=== PATIENT | female | born 1945 | race Caucasian/White ===

== ENCOUNTER → 2016-09-08 | Outpatient (CLI) | payer MEDICARE, OTHER ==
[~2016-09-08] MED LIST: ANASTROZOLE1 MG PO; ASPIRIN EC81 MG PO; CALCIUM 600 +1 EAC7 PO; CENTRUM SILVER1 TAB PO; COLACE100 MG PO; FASLODEX IM; FLEXERIL10 MG PO; IBRANCE125 MG PO; KEFLEX500 MG PO; LEVOTHROID (SY25 MCG PO; MIRALAX17 GM PO; NICORETTE4 MG PO; NORCO 5-325 TA1 EACH PO; OXYGEN M-15 INH; TYLENOL325 MG PO; ULTRAM50 MG PO; VITAMIN D-32000 UNI1 PO
== END | disposition disaster alternative care site (69) ==
LOC: GBCOE 08:38
DX: Z12.31 Encounter for screening mammogram for malignant neoplasm of breast (principal); M81.0 Age-related osteoporosis without current pathological fracture; M85.89 Other specified disorders of bone density and structure, multiple sites; Z85.3 Personal history of malignant neoplasm of breast; Z87.891 Personal history of nicotine dependence; Z87.39 Personal history of other diseases of the musculoskeletal system and connective tissue; Z78.0 Asymptomatic menopausal state; Z90.11 Acquired absence of right breast and nipple; Z79.811 Long term (current) use of aromatase inhibitors
CPT/HCPCS: G0202

== ENCOUNTER → 2016-09-25 | Outpatient (CLI) | payer MEDICARE, OTHER | END | disposition disaster alternative care site (69) | LOC: GRAD 09:39 | DX: M54.6 Pain in thoracic spine (principal); C79.51 Secondary malignant neoplasm of bone; M81.0 Age-related osteoporosis without current pathological fracture; M41.9 Scoliosis, unspecified; Z85.3 Personal history of malignant neoplasm of breast | CPT/HCPCS: A9577 ==

== ENCOUNTER 2016-09-30 16:00 | Inpatient (IN) | payer MEDICARE, OTHER ==
[~2016-09-30] VITALS: Ht 162.6 cm; Wt 67.3 kg
--- NOTE | ~2016-09-30 | DS ---
PATIENT'S NAME: EMELIA GILLIAM [facility] AGE: 71 Y [address] ROOM: [address] [address] LOCATION: [facility] [place] ADMIT DATE: 10/01/2016 Discharge Summary DISCHARGE DATE: 10/08/2016 FAMILY PHYSICIAN: Andrei Land MD ATTENDING PHYSICIAN: Martina Greenwood REASON FOR ADMISSION: The patient was a scheduled admission for an elective procedure. The procedure was posterior thoracic fusion and instrumentation for metastatic tumor to the spine. The patient presented with back pain, and imaging studies showed destruction of the T5 vertebra with spinal cord compression from metastatic tumor. TREATMENT RENDERED: The patient was taken to the operating room on day of admission and underwent posterior thoracic fusion and decompression. The surgery was uncomplicated. Postoperatively, the patient had some left leg weakness but was able to ambulate independently. Her pain was well controlled. The incision was healing well. Physical therapy and occupational therapy worked with the patient. The final pathology came back confirming metastatic tumor to the spine. The patient continued to progress, and by 10/08/2016 was well enough to be transferred to inpatient rehab. She was transferred that day and has since been checked on and confirmed to be progressing well with rehab. She has also been seen by Radiation Oncology, and plans are being made for radiation as well as chemotherapy. She will be followed up in Neurosurgery when she is done with rehab. FINAL DIAGNOSIS: Pathological fracture of T5 vertebra with spinal cord compression, status post posterior fusion and instrumentation. MD LETICIA MAYNARDO/modl /[id number] d: 10/12/16 0143 t: 10/12/162000, DISCHARGE SUMMARY
--- NOTE | ~2016-09-30 | INT ---
PATIENT'S NAME: LISA GILLIAM [facility] AGE: 71 Y [address] 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 Dear doctor: Ms. Lisa Gilliam was seen today in inpatient consultation. As you recall, this is a 71-year-old white female, known to our service. The patient with a previous history of carcinoma of the breast in 1988 and again in 2013. She has been treated by us previously and apparently started having complaints of back pain, which brought her to the attention of physicians. The patient on scans was found to have disease at the T5 level with some possible extension into the T4 area, was seen by Dr. Greenwood, the patient also did have some compression. Subsequently, the patient underwent a surgical decompression, had mechanical stabilization, and we are asked to see her in consultation. When seen today, she is sitting in a chair. She indicates she is doing reasonably well. Does have some complaints of pain. Indicates that she has been ambulating for limited extent and does have some left-sided weakness in the leg. She is aware of her diagnosis. Indicates she has been seen by Dr. Kang earlier today. She otherwise is aware that she may need radiation therapy. She denies any other significant complaints at this time. ALLERGIES: THE PATIENT WITH KNOWN ALLERGIES TO CODEINE, SULFA, AND CHLORAPREP. MEDICATIONS: Current medications include; 1. MiraLax. 2. [place]. 3. Theragran. 4. Vitamin D. 5. Os-Shay. PATIENT'S NAME: LISA GILLIAM [facility] AGE: 71 Y [address] ROOM: [place] [address] LOCATION: [facility] [place] ADMIT DATE: 10/01/2016 Oncology Report DISCHARGE DATE: FAMILY PHYSICIAN: COLTEN LUA MD ATTENDING PHYSICIAN: Martina Greenwood 6. Aspirin. 7. Colace. 8. Levothroid. 9. Flexeril. 10. Arimidex. 11. Senokot. 12. Ultram. 13. Nicorette. 14. Fleet's enema. 15. Dulcolax. 16. Milk of magnesia. 17. Tylenol. 18. Valium. 19. Zofran. 20. Dilaudid. PAST SURGICAL HISTORY: Positive for appendectomy, tonsillectomy, and adenoidectomy; right breast lumpectomy with axillary dissection in 1988; right breast mastectomy in 2000; polyp removal; removal of a toenail along the right great toe; and laparoscopic cholecystectomy. PAST MEDICAL HISTORY: Positive for chronic kidney disease, reflux, fatigue, mitral valve issues, osteoporosis, thoracic aortic aneurysm on CAT scan, history of bulimia, hypothyroidism, and bilateral breast cancer with the patient undergoing surgery on the right in 1988 and surgery on the left in 2013. At that time, the patient had 27/ lymph nodes positive for tumor. FAMILY HISTORY: The patient's mother had a history of breast cancer, dementia, heart disease, and stroke. Maternal aunt had breast cancer. The patient's sister in a motor vehicle accident. The patient's father had heart disease, of complications from colon surgery at age 83. The patient's brother has sleep apnea. Paternal grandfather had heart disease. SOCIAL HISTORY: The patient is a nurse by training. She was an alcoholic, has since quit. She was a smoker, quit smoking as well. The patient is . She has 2 adult children. Worked in the [place] area and has a diploma school level of education. REVIEW OF SYSTEMS: GENERAL: Denies fevers, chills, or night sweats. SKIN: The patient has pierced ears. PATIENT'S NAME: LISA GILLIAM [facility] AGE: 71 Y [address] ROOM: [place] [address] LOCATION: [facility] [place] ADMIT DATE: 10/01/2016 Oncology Report DISCHARGE DATE: FAMILY PHYSICIAN: COLTEN LUA MD ATTENDING PHYSICIAN: Martina Greenwood VISION: The patient has dry eyes. Wears glasses. She reports she has early cataracts. NOSE: The patient will have some stuffiness with her sinuses. MOUTH: The patient has her own teeth. No change in her voice or hoarseness. LUNGS: The patient has shortness of breath with exertion. Occasional cough. GI: The patient feels that she has ulcer disease. Will take Prilosec. CARDIOVASCULAR: Denies chest discomfort or arm pain. : The patient did indicate that she has nocturia x1. NEUROLOGIC: No history of strokes or seizures. HEMATOLOGIC: She indicates she will bruise easily. MUSCULOSKELETAL: She indicates that she fractured her right great toe in the 70s and does have osteoporosis. ENDOCRINE: No history of diabetes. History of hypothyroidism, for which she takes medications. APPLICATION SUPPORT INTERN: The patient underwent menarche at age 14. Went through menopause with her first chemotherapy in 1988. Has 2 and para 2. PHYSICAL EXAMINATION: VITAL SIGNS: Temperature of 97.6, pulse of 100, blood pressure 105/61, and weight of 67.3 kilos. GENERAL: A well-developed, well-nourished, white female, in no apparent distress. HEAD AND NECK: Normocephalic and atraumatic. Extraocular motions are intact. Oral cavity, no masses or mycotic lesions. Neck with no masses noted. The patient has a dressing in place going down her low cervical and upper thoracic spine region. No areas of bleeding. No areas of infection noted. NEUROLOGIC: The patient is alert and oriented x3. Mini mental exam is grossly normal. EXTREMITIES: She indicates her muscle strength in the upper extremities are within her norm and that she has some decreased muscle strength in the left lower leg. Nursing staff indicates she has walked today. We did not attempt to walk the patient. This concluded the limited physical exam of this patient. LABORATORY DATA: The patient has undergone MRIs, revealing the patient has significant disease at the T5 level with a T5 compression, extensive epidural extension at this level, near complete block of the cord of the canal with impending fracture of the cord at that level, lesser neoplastic involvement at T4. Pathology has been obtained, has come back as adenocarcinoma, metastatic, consistent with breast primary. ICD-10. PATIENT'S NAME: LISA GILLIAM [facility] AGE: 71 Y [address] ROOM: [id number] [place], [place] [address] LOCATION: [facility] [place] ADMIT DATE: 10/01/2016 Oncology Report DISCHARGE DATE: FAMILY PHYSICIAN: COLTEN LUA MD ATTENDING PHYSICIAN: Martina Greenwood IMPRESSION: A 71-year-old white female with surgery for a nearly compressing T5 lesion, found to be consistent with metastatic carcinoma of the breast primary. PLAN: We will discuss this patient with Drs. Greenwood and Pearl. We feel that she would benefit from adjuvant radiotherapy to the area of the surgical bed plus appropriate margin so as to minimize the chance of local recurrence. Once we have had an opportunity to discuss this patient with her other physicians, she will be scheduled for CT simulation, to be followed by treatment for a 2 to 3- week period of time depending on whether or not there was overlap with previously treated cook in the anterior chest from our treatment plan. We thank you for allowing us to consult on this most pleasant patient. Sincerely, YURY MANN MD, PHD FZL/modl /[id number] CC: MD Rad Buenrostro MD Cynthia M Lewis, MD d: 10/06/16 2223 t: 10/17/16 0919, INTERVAL NOTE
--- NOTE | ~2016-09-30 | OR ---
PATIENT'S NAME: EMELIA GILLIAM [facility] AGE: 71 Y [address] ROOM: [place] [address] LOCATION: [facility] ADMIT DATE: 10/01/2016 OR/Procedure Report DISCHARGE DATE: FAMILY PHYSICIAN: COLTEN LUA MD ATTENDING PHYSICIAN: Martina Greenwood SURGEON: Martina Greenwood MD TOOL ROOM MACHINIST: 1. Max Parnell RN. 2. Anna Johnston. DATE OF PROCEDURE: 10/01/2016 PREOPERATIVE DIAGNOSIS: Metastatic tumor to spine with spinal cord compression at T5. POSTOPERATIVE DIAGNOSIS: Metastatic tumor to spine with spinal cord compression at T5. PROCEDURES PERFORMED: 1. Laminectomy for decompression without foraminotomy at T4. 2. Laminectomy for decompression without diskectomy at T5. 3. Posterolateral fusion with morselized allograft bone at T2, T3, T4, and T6, T7, T8. 4. Posterior instrumentation with bilateral pedicle screws at T2, T3, T4 and T6, T7, T8. 5. Use of stealth frameless stereotactic system for screw placement. 6. Use of O-arm for intraoperative visualization. ANESTHESIA: General. HISTORY: This patient is a 71-year-old female who presented with back pain. Imaging studies showed a thoracic compression fracture at T5. Further imaging confirmed that the compression was as a result of a metastatic tumor. The patient has a history of breast cancer. The compression fracture was producing very severe stenosis of the patient's thoracic spine. It was also necessary to obtain tissue for pathological diagnosis and to assist with treatment planning. For this reason, decompression was recommended. The procedure, benefits, and risks were discussed with the patient, and with her consent, she was brought to the operating room for surgery. PROCEDURE IN DETAIL: In the operating room, the patient was placed in a supine position. Anesthesia was induced, and she was intubated. Her head was secured in a 3-pin Amezcua head boys golf coach, and she was turned to a prone position on a Alex table, taking care to protect all pressure points. The incision line was marked out approximately at the inferior angle of the PATIENT'S NAME: EMELIA GILLIAM [facility] AGE: 71 Y [address] ROOM: [place] [address] LOCATION: [facility] ADMIT DATE: 10/01/2016 OR/Procedure Report DISCHARGE DATE: FAMILY PHYSICIAN: COLTEN LUA MD ATTENDING PHYSICIAN: Martina Greenwood scapula corresponding to T6. It was extended rostrally and caudally a few bit for the added levels being operated upon. The whole area was prepped and draped in a sterile fashion. Local anesthesia was infiltrated. The #10 blade was used to open the incision and to deepen it to the fascial layer. The Bovie was then used to open the fascia and to dissect off the paraspinous muscles from the spinous processes and laminae of T3 to T8. The interlaminar spaces were clearly visualized at each level. At this point, the reference frame for the stealth frameless stereotactic system was attached to the spinous process of T7. Registration was carried out. The O-arm was then brought in, and a 3-dimensional picture of the spine was obtained around the operative area. The images from the O-arm were then merged with the stealth imaging system to create a 3-dimensional view of the spine for placement of pedicle screws. Pedicle screws were placed bilaterally at T2, T3, T4 and into T6, T7, and T8. The method for placement of pedicle screws was the same for all the levels and will be described for one level as representing all the others. Using the frameless stereotactic system, the entry point for the pedicle was determined, and this also corresponded anatomically to where it was expected. A small corporate pilot hole was then drilled. The pedicle screw finder was used to deepen the hole. The ball-tipped probe was used to feel around the sides of the hole to make sure that there was no breakage of the pedicle wall. Appropriate-sized screw was then inserted. This was done progressively at T2, T3, T4 and at T6, T7, T8. The T5 pedicles were not viable for pedicle screw placement, having been destroyed by tumor. The left T4 pedicle similarly was a little bit questionable, but could still take a screw. Having finished the screw placement, attention was directed to decompression. Decompression was carried out at T5 and T4. The bone was extremely soft at T5, and there was some epidural tumor dorsally surrounding the cord. This was carefully removed to expose the dura. The laminectomy was widened on both sides at T5. From a lateral approach, the floor of the canal was drilled down. The down-pushing curette was then carefully placed under the dura, and the area of bone that was bulging back into the spinal cord was pushed down into the area that had been drilled along the lateral side of the floor of the canal. This way, the dura was left undisturbed. The Wells instrument was passed underneath the dura, and there was no compression felt. This was done from both sides, drilling down into the PATIENT'S NAME: EMELIA GILLIAM [facility] AGE: 71 Y [address] ROOM: [address] [address] LOCATION: [facility] ADMIT DATE: 10/01/2016 OR/Procedure Report DISCHARGE DATE: FAMILY PHYSICIAN: COLTEN LUA MD ATTENDING PHYSICIAN: Martina Greenwood vertebral body and using the down-pushing curette to push down the bone into the area that had been drilled. We got a good anterior decompression this way. Appropriate length rods were then measured and trimmed. The rods were placed inside the pedicle screw heads. Setscrews were used to tighten the rods down inside the pedicle screw heads. Crosslinks were placed. The sides of the laminae and spinous processes of T2, T3, T4 as well as T6, T7, and T8 were decorticated. A mixture of cancellous chips and demineralized bone matrix was placed at the lateral sides where the decortication had been carried out. This was our posterolateral fusion. Final hemostasis was achieved. The incision was closed in layers using appropriate suture materials. A sterile dressing was applied. The Amezcua head boys golf coach was removed from the patient's head, and she was rolled back to a supine position on the operating table. Her anesthesia was reversed. She was extubated and taken to the recovery room to complete her recovery. I was present at and performed every aspect of this procedure, assisted at some stages by operating room nurses. There were no apparent intraoperative complications. Estimated blood loss was less than 500 mL, there was no reason for a blood transfusion. The patient's prognosis is uncertain at this time given the presence of tumor in her spine; however, she should be in a position to start receiving chemotherapy and radiation to control the tumor as best as possible. Also, the risk of spinal cord compression is significantly reduced now, and her spine has been stabilized also. MD CYNDEE MAYNARD/roslyn /[id number] d: 10/04/16 1505 t: 10/11/16 2020, OPERATIVE SUMMARY
--- NOTE | ~2016-09-30 | CON ---
PATIENT'S NAME: EMELIA GILLIAM [facility] AGE: 71 Y [address] ROOM: [place] [address] LOCATION: [facility] [place] ADMIT DATE: 10/01/2016 Consultation DISCHARGE DATE: FAMILY PHYSICIAN: COLTEN LUA MD ATTENDING PHYSICIAN: Martina Greenwood REFERRING PHYSICIAN: Itzel Iniguez MD A consult for Dr. Greenwood. This 71-year-old lady, who I know from previous care, is at this present time referred for rehab eval, GIRP admission. She is status post metastatic tumor to spine with T5 compression. She underwent the followin. Laminectomy, decompression without foraminotomy at L4. 2. Laminectomy, decompression without foraminotomy at L5. 3. Posterolateral fusion with morselized bone allograft at T2, T3, T4, and T6, T7, T8. 4. Posterior instrumentation with bilateral pedicle across T2, T3, T4, and T6, T7, T8. 5. Using frameless stereotactic system for screw placement, this was done on 10/01/2016, details on record. She is now alert, oriented. Vitals are as follows: Blood pressure 120/58, temperature 98.6, pulse 68, respiratory rate 16. She is 5 feet 4 inches tall and weighs 67.3 kg. She is at the present time showing weakness on the left lower extremity, especially proximally rather than distally at risk of falling, can ambulate up to 100 feet with front-wheeled walker. Tells me that she lives alone, and she has a split level home. Her bedroom is on the upper level. She is at the present time on the following medications: 1. MiraLAX. 2. Jasper. 3. Multivitamin. 4. Os-Shay D. 5. Aspirin. 6. Colace. 7. Levothroid. 8. Flexor. 9. Arimidex. 10. Senna S. 11. Ultram. 12. Nicorette. 13. NS 0.9%. 14. Fleets enema. PATIENT'S NAME: EMELIA GILLIAM [facility] AGE: 71 Y [address] ROOM: [place] [address] LOCATION: [facility] [place] ADMIT DATE: 10/01/2016 Consultation DISCHARGE DATE: FAMILY PHYSICIAN: COLTEN LUA MD ATTENDING PHYSICIAN: Martina Greenwood 15. Dulcolax. 16. MOM. 17. Tylenol. 18. Valium. 19. Zofran. 20. Lactated Ringer. 21. Dilaudid. 22. Narcan. ASSESSMENT AND PLAN: I feel this lady will benefit from intensive rehabilitation of about 10 days. I will suggest also she goes on Lovenox. She is at the risk of DVT, and we will put her in Johnson's, knee high with PlexiPulse. Thank you for this referral. I did explain everything for her. She verbalized understanding and agreement. MD FRANKLIN STARR/modl /[id number] d: 10/05/16 1600 t: 10/06/16 0747, CONSULTATION REPORT
[~2016-09-30 16:00] MED LIST changes: -FASLODEX IM; -IBRANCE125 MG PO; -KEFLEX500 MG PO; -NORCO 5-325 TA1 EACH PO; -TYLENOL325 MG PO
--- NOTE | 2016-10-02 03:07 | NUR ---
Shift Summary: Patient came to the floor at 2114. She has long dressing to mid upper back. Has numbness to bilateral lower legs. States she had this before her surgery. States Left leg feels heavier then right leg. Can move and lift both legs without difficulty. She has luke cath. Using Dilaudid SHALE MINER for pain control. Tolerating liquids well. Has quad right IJ and an unaccessed right chest port. Patient on 2L O2 when sleeping at home. Continued here.
[2016-10-02 05:34] LABS: HEMATOCRIT 30.6 % (33.0-46.0); HEMOGLOBIN 10.2 g/dL (10.0-15.0)
--- NOTE | 2016-10-02 15:40 | NUR ---
Introduced self/role to patient. Her plan is to go home here in [place]. Son lives with her and other son close by to assist as needed. Will have 9 steps to get up to her bedroom. We talked about DME which may need. Mentioned [employer], would need to get equipment before noon tomorrow if wanted to use them. Printed off all the places to get DME in [place] and gave to her. Interested in [facility] and no preference on who. Will follow up with her tomorrow. Added name to her marker board. Contacted Ally with [facility] and fax referral information.
--- NOTE | 2016-10-02 16:57 | NUR ---
PATIENT UP TO CHAIR X 2. LEFT LEG WEAKNESS WHEN WALKING. 2 ASSISTANCE WITH MOVMENT. ABLE TO LIFT LEGS OFF OF BED WHEN SUPINE. NUMBNESS TO BILATERAL FEET. PULSES PALPABLE, COLOR PALE. LUNGS CLEAR DIMINSHED. O2 AT 2L/MIN. DOES WEAR O2 AT 2L/MIN AT NIGHT AT HOME. [place] [facility] CONTINUES PROVIDING GOOD PAIN RELIEF. VSS. MIRANDA PATENT.
--- NOTE | 2016-10-03 05:06 | NUR ---
Posterior thoracic fusion. Numbness on upper and lower extremity. Patient able to ambulate from chair to bed with one assist. Small drainage on lower end of dressing. ETCO2 and PHARMACY INFORMATICS MANAGER dilaudid in use. Pt tachycardic pulse>100 during shift. Pt has folley cather; to be dc this am. Fingers bluish often. Only PHARMACY INFORMATICS MANAGER dilaudid used for pain during shift.
--- NOTE | 2016-10-03 08:15 | NUR ---
6001 Faxed additional information to [facility]. 1015 Ally with [facility] called. Asked about operative summary, not dictacted yet. They will plan to see her Thursday. 1055 Followed up with patient about 4WW. She called [facility] and left a message while I was in her room. I will check for prices elsewhere. [facility] dose not carry them. [facility] will not bill Medicare and they are on sale now ranging from $99-$350. [facility] on sale now $90. [facility] will bill Medicare and range from $120 up. 1155 Gave patient all the above information. She will probably get the one from [facility] as the other places will be closing at 1700 today for the weekend. Placed script on chart incase she changes her mind. Face to face also on chart, needs competed and signed by the doctor. [facility] will plan to see her Thursday. She had no additional concerns or questions. Left a note on the chart to fax [facility] meds, orders and face to face. F# [phone] and P# [phone]. Patient has contact infor for [facility].
--- NOTE | 2016-10-03 17:12 | NUR ---
Pt alert and oriented. Weaned off O2 this morning. She has dressing to upper back that has old drng on bottom that hasn't increased. She has numbness tingling to hands and feet with left hand worse. Left leg weak and states it isn't moving as well. Able to rais both leg when lying in bed but harder to move left and unable to raise it as high. Pt has some left foot drop when walks, but she feels it has improved over the shift. Pt weaned off WOOD BORER early AM and has had norco po x3, last at 1505. Has edema of arms and left ankle. She had luke removed and voided in BR x2. Up with one asst and up arteaga with PT. IS use at 1000. Pt has bluish ends of fingers which she has had she says prior to admission. Has had chemotherapy several times in the past. Pt uses O2 2 liters at noc and also does at home. Rt IJ removed this morning. Plans to go home when ready with asst of son.
--- NOTE | 2016-10-04 04:56 | NUR ---
Significant Event: A/Ox3. Up with 1 Assist, gait belt and walker. Pt states her legs are rubbery, unsteady on feet. Left leg weak with left foot drop when she walks. Pain had increased this shift. Up to void 6x throughout night. Pt has bluish ends of fingers, which she says she had before arrival. Has has chemotherapy numerous times before. O2 2L at [facility]. MRI scheduled for am. Follow up:
[2016-10-04 05:35] LABS: CREATININE 0.7 mg/dL (0.5-1.1); ESTIMATED GFR (MDRD EQUATION) > 60
--- NOTE | 2016-10-04 14:51 | NUR ---
Significant Event: AMBUL TO BR OUT IN SOMERS WITH 1 ASSIST, IS SOMEWHAT UNSTEADY, LEGS SOMETIMES GIVE OUT. BACK DSG CHANGED BY DR ORTEGA, MEPILEX APPLIES, [facility]SM GOOD IN EXTREM. HAS EDEMA IN BILAT ARMS FROM OLD MAST. IS ON CHEMO PRECAUTIONS. HAD MRI SPINE COMPLETED THIS AM. HAD NORCO 2 TAB AT 0800. HAD VALIUM 5 MG 1 TAB X2 LAST AT 1430. HAD NORCO 1 TAB AT 1430 ALL FOR BACK INCISIONAL DISCOMFORT. VOIDING W/OUT DIFF, IS ON BOWEL PROGRAM... Follow up:
--- NOTE | 2016-10-05 04:01 | NUR ---
Significant Event: AMBULATES WITH WALKER AND 1 ASSIST TO BATHROOM. TOLERATED ACTIVITY FAIRLY WELL. SLEPT IN CHAIR AND IN BED TONIHGT. APPETITE GOOD. 2 NORCO GIVEN LAST @ 0100. 1 VALIUM 5 MG GIVEN PO @ 0001. REQUIRES O2 @ 2L @ HS. HANDS COLD AND FINGERTIPS CYANOTIC. UNABLE TO GET GOOD SAO2 READING FROM HANDS. SAO2 ON TOE, 97% ON 2L O2. Follow up: ENCOURAGE MORE INDEPENDENT CARES
--- NOTE | 2016-10-05 15:04 | NUR ---
Significant Event: Pt up in chair with standby assist. Passing flatus, no bm. Dr. Mooney consulted, will take her on rehab when ready. Dressing to upper back d/i. Good pain management with norco. Dr. Holm to be consulted for possible radation. MICHELLE de santiago on. Follow up:
--- NOTE | 2016-10-06 04:32 | NUR ---
Significant Event: Patient ambulated in hallway x 2, drags left leg some, but did fairly well. No IV ascess but does have a port. 2 [place] given at HS and again at 0145 for back pain of 7-8, Right arm is greatly swollen from right radical mastectomy. Dressing to back from back fusion. Vital stable, alert, orientated and pleasant. Follow up: Continue to monitor.
--- NOTE | 2016-10-06 11:00 | NUR ---
Co-worker Misty Villalta called and left a message with [facility] whom is covering referrals for Inpatient Rehab asking if they were going to accept patient? 1230 Followed up with patient. No new changes. She was unaware of [facility] was an option. 1530 Spoke to charge nurse Irena, she has not heard from [facility] either.
--- NOTE | 2016-10-06 11:10 | NUR ---
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 MED HX: BREAST CA. NO BM SINCE 10/01; BOWEL MEDS BEING GIVEN. (+)BS; (+)FLATUS HT: 64 IN. WT: 67.3 KG. 123% IBW. 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 DIET RX: REGULAR. PO INTAKE 50-100% EST NUTR NEEDS: [id number] KCALS (25-30 KCALS/KG) 67-81 GM PROTEIN (1.0-1.2 GM/KG) 1 ML FLUID/KCAL D-NOT AT NUTRITION RISK; NO NUTRITION DX IDENTIFIED I-CONTINUE W/CURRENT DIET RX M/E-WILL ASSIST NEEDED
--- NOTE | 2016-10-06 16:38 | NUR ---
Significant event: Up in [place] with one assist, gait belt and walker. Drags left foot at times. Dressing to back intact. Lung sounds clear and diminished. Right arm continues to be swollen. Tomorrow am is scheduled for a bone scan and CT. Needs bone scan first. Had shower today. Dr. Holm was here today.
--- NOTE | 2016-10-07 04:17 | NUR ---
Significant Event: AAOX3. REG DIET. PORT TO R) CHEST. 1PA WITH FWW AND GB WITH ACTIVITIES, FATIGUES. DRESSING TO BACK CDI. PT STATES NUMBNESS TO HANDS IS NORMAL FOR HER. SIGNIFICANT EDEMA TO BUE. LIMB ALERT TO LEFT ARM. NORCO AND FLEXORIL LAST ADMINISTERED AT 0113. PT TO HAVE BONE SCAN THEN CT THIS AM. PT TO BEGIN RADIATION IN 2-3 WKS ONCE BACK HEALS. Follow up:
--- NOTE | 2016-10-07 14:48 | NUR ---
Notified Ally with [facility] that patient was going to [facility] in the morning but would still need their services once discharges from there.
--- NOTE | 2016-10-07 16:18 | NUR ---
Significant Event:Is A/O.Has Rt.chest portacath which is accessed.Wears O2 at noc.Has Rt.arm/hand lymphadema.Upper back drsg changed as was rolling up from the bottom.Has meripex drsg on.Had bone scan & CT today.Fingers are numbish,but states this is not new & says it was from chemo.Has been amb with walker & standby assist--does well.2 [place] at 1504.Is pleasant. Follow up:
--- NOTE | 2016-10-08 04:01 | NUR ---
Significant Event:pt aaox3.pleasan with staff and cares. up with stand by assist, walker. does well with transfers. complains of pain with movement, prn norco 1 tab given last at 226, valium prn given last at 226, flexeril given at 2128. pt vss. blood pressure to right arm only. dressing c/d/i. cont of bladder. appetite poor. will go to [facility] at 0900 Follow up:
[2016-10-08 08:44] LABS: ANION GAP 10.6 (10.0-19.0); POTASSIUM 4.6 mMol/L (3.7-5.1)
--- NOTE | 2016-10-08 08:45 | NUR ---
Spoke to Lissette on [facility], all a go still with them. [phone] Spoke to charge nurse Irena - orders done, she just needs to find out if Dr. Kang needs to see her first. Followed up with patient. Let her know I put [facility] with [facility] on hold and Ally will touchbase with Lissette on [facility] when she is ready to transition home.
--- NOTE | 2016-10-08 10:00 | NUR ---
Significant Event: Taking food and fluids well. Dressing to upper back is clean/Dry/Intact. She does report some numbness in legs but reports this has not changed since before surgery. Infusa port is accessed in upper right chest and flushes readily but no blood flow noted with aspiration. She reports it is very positional. Transfers with stand-by assist, gait belt and wheeled walker. [place] 1 tab and valium 5 mg given at 0700 and [place] 1 tab at 0940 for back pain with some relief. Lymphedema noted to upper extremities, despite R) mastectomy she prefers lab draws and BP in this arm. Follow up:Transfered in Inpatient Rehab.
== END 2016-10-08 09:53 | disposition other institution (70) | DRG 457 ==
LOC: GMSU 10-01 11:30 → G3N 10-01 11:30 → GMSU 10-04 16:38
PROVIDERS: Internal Medicine Hematology & Oncology; ADMIT Neurological Surgery
PROC: 01N80ZZ Release Thoracic Nerve, Open Approach (ICD-10-PCS; principal; 2016-10-01)
PROC: 0RG70K1 Fusion of 2 to 7 Thoracic Vertebral Joints with Nonautologous Tissue Substitute, Posterior Approach, Posterior Column, Open Approach (ICD-10-PCS; 2016-10-01)
DX: C79.51 Secondary malignant neoplasm of bone (principal); G95.29 Other cord compression; I50.32 Chronic diastolic (congestive) heart failure; Z85.3 Personal history of malignant neoplasm of breast; K59.00 Constipation, unspecified; K21.9 Gastro-esophageal reflux disease without esophagitis; Z87.891 Personal history of nicotine dependence; E78.5 Hyperlipidemia, unspecified; E03.9 Hypothyroidism, unspecified; M81.0 Age-related osteoporosis without current pathological fracture
CPT/HCPCS: A9503; A9576; C1713; C1776; J0690; J1100; J1170; J2250; J2405; J3010; J3489; J7030; J7040; J7050; J7120; Q9967

== ENCOUNTER 2016-10-08 10:00 | Inpatient (IN) | payer MEDICARE, OTHER ==
[~2016-10-08] VITALS: Ht 162.6 cm; Wt 71.9 kg
--- NOTE | ~2016-10-08 | HP ---
PATIENT'S NAME: EMELIA GILLIAM [facility] AGE: 71 Y [address] ROOM: [place] [address] LOCATION: [facility] ADMIT DATE: 10/08/2016 History & Physical DISCHARGE DATE: FAMILY PHYSICIAN: COLTEN LUA MD ATTENDING PHYSICIAN: Paulie Mooney DATE OF SERVICE: This 71-year-old lady was admitted for continuous medical treatment and intensive rehabilitation with: 1. Unstable gait. 2. Weakness. 3. Dependent activity of daily and self-care. Status post metastatic tumor to the spine with spinal cord compression at T5. She did undergo on 09/11/2016 the following; 1. Laminectomy for decompression without foraminotomy at T4. 2. Laminectomy for decompression without diskectomy at T5. 3. Posterolateral fusion with morselized allograft bone at T2, T3, T4; and T6, T7, T8. 4. Posterior instrumentation with bilateral pedicle screws at T2, T3, T4; and T6, T7, T8. 5. Using a Stealth frameless stereotactic system for screw placement. 6. Use of O-arm for intraoperative visualization. This was all done for stabilizing of the spine at the thoracic region for metastatic tumor of spinal cord with compression at T5. Details on record. She is with past history as following; 1. History of depression. 2. Gastroesophageal reflux disease. 3. Adenomatous polypi of the colon, per history. 4. Osteoporosis. 5. Atherosclerotic valvular disease. 6. Bilateral cataract surgery. 7. Osteoarthritis, back and knees. 8. Possible bulimia. 9. 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 10. Mitral regurgitation, mild and trace of tricuspid regurgitation and trace of aortic regurgitation and trace of pulmonary valvular regurgitation. 11. Thrombophlebitis in 2013. 12. Status post tonsillectomy and adenoidectomy in 1952. PATIENT'S NAME: EMELIA GILLIAM [facility] AGE: 71 Y [address] ROOM: [place] [address] LOCATION: [facility] ADMIT DATE: 10/08/2016 History & Physical DISCHARGE DATE: FAMILY PHYSICIAN: COLTEN LUA MD ATTENDING PHYSICIAN: Paulie Mooney 13. Appendectomy in 1964. 14. Tubal ligation in 1983. 15. Lumpectomy of right breast in 1988. 16. Right simple mastectomy in 2000. 17. Left axillary dissection in 2013. 18. Laparoscopic cholecystectomy in 2014. She is at the present time, alert, oriented. Vital signs are as follows. Blood pressure 120/60, temperature 98.3, pulse 91, respirations 16, she is 5 feet and 4 inches, and weighs 67.3 kg. Allergies, none reported. She is on the following medications; 1. Aspirin low dose, 81 mg p.o. daily. 2. Os-Shay D 1000 mg p.o. daily. 3. Vitamin D 2000 units per day. 4. Levothyroxine 25 mcg p.o. daily. 5. Theragran-M 1 tablet p.o. daily. 6. MiraLax 17 grams p.o. daily as needed. 7. Senokot-S 1 tablet twice daily. 8. Sodium chloride 0.9% IV bag, 250 per protocol. 9. Tylenol 650 q.6 hours, do not exceed acetaminophen 4 grams q.24 hours. 10. [place] 1 to 2 tablets q.4 hours, do not exceed acetaminophen 4 grams q.24 hours. 11. Dulcolax 10 mg rectally as needed. 12. Flexeril 10 mg at night. 13. Valium 5 mg q.4 hours as needed. 14. Colace 100 mg p.o. daily. 15. MOM 30 mL as needed. 16. Narcan 0.2 mg IV p.r.n. as needed. 17. Nicorette 2 mg, 4 mg p.o. as needed. 18. Zofran 4 mg IV q.4 hours as needed. 19. Fleets enema 133 mL as needed. 20. Ultram 50 mg p.o. q.6 hours. She is at the present time able to comprehend, express without difficulty, can move all four. She can, at the present time, ambulate up to 150 to 180 feet with a front-wheeled walker and a gait belt with standby assistance. She is not very stable at times. We will put her on intensive PT/OT 3 hours per day, 15 hours per week for the coming 2 weeks, aiming to discharge on modified independence. All the above was explained to her in detail. She verbalized understanding and agreement with plan of care. PATIENT'S NAME: EMELIA GILLIAM [facility] AGE: 71 Y [address] ROOM: [place] [address] LOCATION: [facility] ADMIT DATE: 10/08/2016 History & Physical DISCHARGE DATE: FAMILY PHYSICIAN: COLTEN LUA MD ATTENDING PHYSICIAN: Paulie Mooney PAULIE MOONEY MD WMS/modl /[id number] D: [id number] T: [id number] HISTORY & PHYSICAL
--- NOTE | ~2016-10-08 | CON ---
PATIENT'S NAME: EMELIA GILLIAM [facility] AGE: 71 Y [address] ROOM: [place] [address] LOCATION: [facility] ADMIT DATE: 10/08/2016 Consultation DISCHARGE DATE: FAMILY PHYSICIAN: COLTEN LUA MD ATTENDING PHYSICIAN: Antonio Abebe DATE OF CONSULTATION: 10/10/2016 REFERRING PHYSICIAN: Martina Greenwood MD CHIEF COMPLAINT/REASON FOR CONSULTATION: Medical management in the setting of thoracic tumor decompression and fusion with generalized weakness. HISTORY OF PRESENTING ILLNESS: This 71-year-old white female with prior history of metastatic breast cancer with metastases to the left axilla and spinal metastases including thoracic fracture and cord compression. She was brought to inpatient rehab on 10/08/2016. She underwent thoracic laminectomy with fusion under the direction of Dr. Greenwood on 10/01/2016. Postoperatively, she did well, but her progress was slowed by generalized weakness and some pain control. She has done fairly well since placement on the inpatient rehab unit, but complains of continued generalized weakness. She complains of pain primarily in the mid back, but it is controlled with [place]. She typically takes a couple of [place] and Valium prior to therapy sessions, which "helps." She denies headache pain. Denies dizziness or nausea. Does feel "foggy" and is frequently forgetful. She denies chest pain or palpitations. She eats and drinks normally. Denies any difficulties with chewing or swallowing. No abdominal pain. Stools are sluggish, but she has been stooling fairly regularly. She voids without any problems. She does have some numbness and tingling in her hands, which she blames on chemotherapy. She has also got some swelling, which she blames on lymphedema, worse on the right side. She has had some scaling and crusting of the skin related to that. ALLERGIES: CODEINE. ILLNESSES: 1. Breast cancer, metastatic. 2. Thoracic vertebral metastases with cord compression status post thoracic laminectomy and fusion. 3. Obstructive sleep apnea. 4. Valvular heart disease. 5. Peripheral arterial disease. PATIENT'S NAME: EMELIA GILLIAM [facility] AGE: 71 Y [address] ROOM: [place] [address] LOCATION: [facility] ADMIT DATE: 10/08/2016 Consultation DISCHARGE DATE: FAMILY PHYSICIAN: COLTEN LUA MD ATTENDING PHYSICIAN: Antonio Abebe 6. Lymphedema. 7. Chronic constipation. 8. Hypothyroidism. 9. Gastroesophageal reflux disease. 10. Osteoporosis. CURRENT MEDICATIONS: 1. Multivitamin daily. 2. Vitamin D3, 2000 units p.o. daily. 3. Calcium carbonate with vitamin D 1000 mg p.o. daily. 4. Aspirin 81 mg p.o. daily. 5. Levothyroxine 25 mcg p.o. daily. 6. Senna DSS 1 tablet p.o. b.i.d. 7. MiraLax 17 grams p.o. b.i.d. 8. Tramadol 50 mg p.o. q.6 hours p.r.n. for pain. 9. Fleets enema p.r.n. 10. Zofran 4 mg IV q.4 hours p.r.n. 11. Nicotine gum p.r.n. 12. Naloxone 0.2 mg p.r.n. over treatment with analgesia. 13. Milk of magnesia 30 mL p.o. daily p.r.n. for constipation. 14. Colace 100 mg p.o. q.a.m. 15. Diazepam 5 mg p.o. q.4 hours p.r.n. 16. Flexeril 10 mg p.o. q.h.s. p.r.n. 17. Dulcolax 10 mg SC daily p.r.n. 18. [place] 5/325 one to two tablets p.o. q.4 hours p.r.n. for pain. 19. Acetaminophen 650 mg p.o. q.4 hours p.r.n. for pain or fever. FAMILY HISTORY: Negative for heart attack or stroke. SOCIAL HISTORY: She is and lives in [place]. Her son has provided social assistance and lives with her. She has a 65-[id number]-tirr history of smoking tobacco, but has been quit since 2004. She also has a history of alcohol abuse, but has been quit for many years. REVIEW OF SYSTEMS: As per HPI. The remainder of review of systems is negative. OBJECTIVE: VITAL SIGNS: Temperature 97.5, pulse 99, respirations 12, blood pressure 146/80, and O2 saturation 96% on room air. GENERAL: She is very pleasant, cooperative, lying in bed, in no acute distress. SKIN: Supple, pink, warm, and dry. There is some scaling and crusting about PATIENT'S NAME: EMELIA GILLIAM [facility] AGE: 71 Y [address] ROOM: [place] [address] LOCATION: [facility] ADMIT DATE: 10/08/2016 Consultation DISCHARGE DATE: FAMILY PHYSICIAN: COLTEN LUA MD ATTENDING PHYSICIAN: Antonio Abebe the dorsum of the hands consistent with a nonspecific dermatitis. HEENT: Otherwise, normocephalic. Sclerae nonicteric. Pupils equal, round, slow to react to light. Extraocular movements appear intact. Nasal turbinates normal in appearance. Oropharynx is clear. Mucous membranes are pink and moist. NECK: Supple. No masses. No adenopathy. No thyromegaly. No JVD. CHEST: Chest wall is symmetrical. HEART: Regular with occasional extrasystoles. There is a grade 2/6 systolic ejection murmur. LUNGS: Diminished at the bases with long expiratory phase. No brittany wheezes. No areas of consolidation. ABDOMEN: Soft. Protuberant. Nontender. Bowel sounds present. No mass or hepatosplenomegaly. AND RECTAL: Not done. EXTREMITIES: Display 1 to 2+ pitting edema in the right upper extremity greater than left and 1 to 2+ pitting edema of the bilateral lower extremities. NEUROLOGICAL: Mentation is little slowed. She is alert and oriented x3. Sensation appears intact. Strength is 3 to 4/5 in the bilateral lower extremities and 4/5 in the bilateral upper extremities. DTRs are 0 to 1+, roughly symmetrical. Gait is not observed. LABORATORY AND X-RAY DATA: CBC from 10/09/2016 shows a white blood cell count of 2.3, hemoglobin of 8.8, hematocrit of 25.6, and platelets of 100. Chemistries from 10/09/2016 showed BUN and creatinine of 7 and 0.6 respectively, sodium and potassium of 139 and 4.2, chloride and CO2 of 105 and 25, calcium is 8.1, glucose 89, AST and ALT 63 and 50, and bilirubin is 0.1. ASSESSMENT AND PLAN: 1. Lymphedema, multifactorial, and presumably related to prior mastectomy and lymph node dissections. Hypoalbuminemia may also be a contributing factor. Agree with directed therapy and avoidance of unnecessary interventions or lab draws. Encourage the use of moisturizer lotion with emollients. 2. Obstructive sleep apnea, historically stable. Continue with nocturnal oxygen p.r.n. 3. Anemia, postoperative, clinically stable. There is no evidence of any active blood loss. We will follow this serially. Plan to repeat hemoglobin again on Thursday. 4. Constipation, chronic. Well controlled with current regimen. Encourage mobilization as she is physically able. 5. Hypothyroidism, also stable. Continue with thyroid replacement therapy. 6. Thoracic vertebral metastases with fracture and cord compression status post thoracic decompression and fusion, stable with adequate pain PATIENT'S NAME: EMELIA GILLIAM [facility] AGE: 71 Y [address] ROOM: [place] [address] LOCATION: [facility] ADMIT DATE: 10/08/2016 Consultation DISCHARGE DATE: FAMILY PHYSICIAN: COLTEN LUA MD ATTENDING PHYSICIAN: Antonio Abebe control. Continue the [place] p.r.n. and restorative care on inpatient rehab. 7. Generalized weakness. Agree with restorative cares including physical therapy and occupational therapy as above. 8. Metastatic breast cancer. Plan to start chemo and radiation therapy at some point. Hematology/Oncology are following. 9. Moderate protein-calorie malnutrition. Encouraged balance dietary intake. 10. Thrombocytopenia, stable. No evidence of bleeding as above. We will follow serially. I will follow periodically. 11. Deep venous thrombosis prophylaxis. Continue MICHELLE hose and mobilization as she is physically able. MD EVANGELINA IZQUIERDO/roslyn /[id number] d: 10/10/160 t: 10/11/16 1610, CONSULTATION REPORT
--- NOTE | ~2016-10-08 | CON ---
PATIENT'S NAME: EMELIA GILLIAM [facility] AGE: 71 Y [address] ROOM: [address] [place] [address] LOCATION: [facility] ADMIT DATE: 10/08/2016 Consultation DISCHARGE DATE: FAMILY PHYSICIAN: COLTEN LUA MD ATTENDING PHYSICIAN: Paulie oS DATE OF CONSULTATION: 10/28/2016 REFERRING PHYSICIAN: Martina Greenwood MD Team members reporting include Dr. So; Lissette Dai, social services coordinator; Monica Motley, RN; Kristina Teixeira, PT; Misty Garay, PT; Francisca Garcia, OT; Janna Rocha, Speech Therapy; Nichelle Dias, therapeutic rec; and Sister Kimmy Riojas, pastoral Care. CURRENT STATUS: Brett Salidvar is a 71-year-old woman, admitted to our inpatient rehab unit following upper posterior thoracic fusion thoracic two through thoracic eight for metastasis to the spinal cord from breast cancer. The patient is continent of bowel and bladder. She does have an incision on her back, takes [place] 2 out of time for pain. Right arm and hand are swollen. Continue to be swollen. Her prealbumin is currently at 16. She is on a regular diet. She is taking Ensure and lives twice a day. The patient can transfer sit to supine and supine to sit independently; sit to stand and stand to sit, mod I and bed to chair and chair to bed, mod I. She can walk 600 feet at mod I using a four-wheeled walker. She can climb 20 stairs with one railing and a cane at mod I, if she uses a single-point cane to walk, she can do 300 feet at standby. The patient can dress her upper and lower body at standby; grooming, standby assistance to independence bathing standby, toilet and shower transfers, standby; and toileting, standby; home management tasks, standby. Home visit is planned for Thursday. The patient is very scared and anxious about going home. She has met 01/18 long-term OT goals set at mod I to standby. Comprehension is at standby to mod I; language and expression standby to mod I; memory standby to mod I; and problem solving, standby to mod I. speech therapy will DC at the end of this date. The patient can complete car transfers at standby assistance with verbal cues for safety. Continues to attend AA meetings. DISCHARGE PLAN: The patient is receiving 3 hours of PT, OT, and speech Thursday through Thursday. The patient has daily rehab, nursing, and physiatry involvement as well therapeutic recreational services 4 days per week. The patient has shown functional improvement and is progressing. Please see her plan of care for specific goals. Plan is for patient to discharge in approximately 5 to 7 days. Plan is for patient to return to home here in [place]. The patient's son will be there to assist her as needed. PATIENT'S NAME: EMELIA GILLIAM [facility] AGE: 71 Y [address] ROOM: [address] [place] [id number] LOCATION: [facility] ADMIT DATE: 10/08/2016 Consultation DISCHARGE DATE: FAMILY PHYSICIAN: COLTEN LUA MD ATTENDING PHYSICIAN: Paulie So LISSETTE DAI FOR PAULIE SO MD TD/modl /[id number] d: 10/31/16 1455 t: 11/13/16 1607, CONSULTATION REPORT
--- NOTE | ~2016-10-08 | CON ---
PATIENT'S NAME: LISA GILLIAM [facility] AGE: 71 Y [address] ROOM: [place] [address] LOCATION: [facility] ADMIT DATE: 10/08/2016 Consultation DISCHARGE DATE: FAMILY PHYSICIAN: COLTEN LUA MD ATTENDING PHYSICIAN: Paulie So DATE OF CONSULTATION: 10/21/2016 REFERRING PHYSICIAN: Martina Greenwood MD Team members reporting include: Dr. So; Lissette Dai, marriage and family social worker; Monica Motley, RN; Samia Teixeira, PT; Misty Garay, PT; Payal Araiza, OT; Janna Rocha, Speech Therapy; Nichelle Dias, therapeutic rec; and Sister Kimmy Riojas, Pastoral Care. CURRENT STATUS: Includes: Lisa is a 71-year-old woman, admitted to our inpatient rehabilitation unit on 10/08/2016 following a posterior thoracic fusion, thoracic 2 through thoracic 8 for metastases to her spinal cord from a primary breast cancer location. The patient continues to have edema to her right hand. She is continent of bowel and bladder. She does have incisions that are healing. She was started on antibiotics for her incision that was having some leaking, and taking Dafter for pain. She can transfer sit to supine and supine to sit independently. She is walking 150 to 180 feet with a front- wheeled walker at standby. Overall, PT feels like her pain is getting much worse. She can climb 12 stairs with 2 railings at standby. She has met 2/9 long-term PT goals. The patient can dress her upper and lower body at standby; grooming and bathing, standby; toilet and shower transfers, standby; toileting, standby; and feeding, standby assistance. She has met 5/13 long- term OT goals. Car transfers are contact guard assistance. Overall, her recall is poor. The patient does like to attend AA meetings. The patient is having slower processing with her cognition and more pain. Dr. So did order a CT scan of her brain. Dr. Greenwood is to see, and Speech Therapy has been consulted. DISCHARGE PLAN: The patient is receiving 3 hours of PT, OT, and speech Thursday through Thursday. The patient has daily rehabilitation, nursing, and physiatry involvement as well as therapeutic recreational services 4 days per week. The patient has shown functional improvement and is progressing. Please see her plan of care for specific goals. Plan is for patient to discharge in approximately 7 to 10 days. Plan is for patient to return to home here in [place], [place] if at all possible. PATIENT'S NAME: LISA GILLIAM [facility] AGE: 71 Y [address] ROOM: [address] [address] LOCATION: [facility] ADMIT DATE: 10/08/2016 Consultation DISCHARGE DATE: FAMILY PHYSICIAN: COLTEN LUA MD ATTENDING PHYSICIAN: Paulie So LISSETTE DAI FOR PAULIE SO MD TD/modl /[id number] d: 10/31/16 1444 t: 11/13/16 1604, CONSULTATION REPORT
--- NOTE | ~2016-10-08 | INT ---
PATIENT'S NAME: LISA GILLIAM [facility] AGE: 71 Y [address] 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 HISTORY OF PRESENT ILLNESS: Lisa is a 71-year-old female who was started on her radiation therapy to her thoracic spine today. The patient is currently at a dose of 250 cGy out of 3750 cGy. The patient was seen last week and had drainage that was reddish in color from her thoracic spine incision. The drainage had leaked down into her slacks and onto her shirt. Dr. Greenwood had placed sutures to the upper incision area and patient has also been started on clindamycin. The patient states she had been taking Valium for muscle spasms to the thoracic spine; however, the patient felt this made her too "goofy." This has been discontinued. The patient feels more clear-headed today. The patient is planning to go home next Thursday. She is working with physical therapy. Niki Izquierdo APRN acting as Dr. Mann's scribe for the physical examination, impression, and plan. PHYSICAL EXAMINATION: VITAL SIGNS: Temp 98, pulse 106, respiratory rate 16, blood pressure 101/72, oxygen saturation 97% on room air. Pain was 6/10. Weight is 72.9 kg. SKIN: The patient has an island dressing to the thoracic spine, at the top of the incision are some sutures without redness of skin or discharge. No drainage is noted on the dressing. EXTREMITIES: The patient is sitting in the wheelchair. She has good range of motion to her upper extremities. NEUROLOGIC: The patient is alert and oriented x3. 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 We will continue with PATIENT'S NAME: LISA GILLIAM [facility] AGE: 71 Y [address] ROOM: [place] [address] LOCATION: [facility] ADMIT DATE: 10/08/2016 Oncology Report DISCHARGE DATE: FAMILY PHYSICIAN: COLTEN LUA MD ATTENDING PHYSICIAN: Paulie Mooney treatment. The patient was told she would have 14 more treatments fractions to the thoracic spine. NIKI IZQUIERDO APRN FOR YURY MANN MD, PHD LAD/modl /[id number] CC: MD Rad Buenrostro MD d: 10/28/161915 t: 11/10/16899, INTERVAL NOTE
--- NOTE | ~2016-10-08 | CON ---
PATIENT'S NAME: LISA GILLIAM [facility] AGE: 71 Y [address] ROOM: [place] [address] LOCATION: [facility] ADMIT DATE: 10/08/2016 Consultation DISCHARGE DATE: FAMILY PHYSICIAN: COLTEN LUA MD ATTENDING PHYSICIAN: Paulie So DATE OF CONSULTATION: 10/14/2016 REFERRING PHYSICIAN: Martina Greenwood MD Team members reporting include Dr. Antonio Abebe, acting for Dr. So this week; Lissette Dai, group social worker; Monica Motley, RN; Kristina Teixeira, PT; Misty Garay, PT; Payal Araiza, OT; Nichelle Dias, therapeutic rec; and Sister Ree Guerra, Pastoral Care. CURRENT STATUS: Lisa is a 71-year-old woman, admitted to our inpatient rehab unit on October 08, 2016, following a posterior thoracic fusion, thoracic 2 through thoracic 8, for metastases to the spinal column resulting in back pain. The patient has a history of breast cancer with metastases to the left axilla and spinal metastases including thoracic fracture and cord compression. She also has a history of obstructive sleep apnea, valvular heart disease, peripheral arterial disease, lymphedema, chronic constipation, hypothyroidism, gastroesophageal reflux disease, and osteoporosis. The patient is on 2 L of oxygen at night. She does have edema in her right arm. PT continues to do daily lymphedema treatments. The patient takes Percocet for pain. She is on a regular diet. Prealbumin is 14, currently at low nutritional risk. She can transfer sit to supine at standby; supine to sit, contact guard assistance; sit to stand and stand to sit, standby; and bed to chair and chair to bed, standby. She can walk 150 feet with a front-wheeled walker at standby assistance. If she uses crutches, it requires standby assistance. She can climb 8 stairs with one railing and a crutch at contact guard assistance. She has met 2/9 long-term goals set for mod-I. The patient can dress her upper and lower body at standby; grooming, standby, bathing, contact guard assistance; toilet transfers, standby; toileting, standby, shower transfers, contact guard assistance; and feeding, independent. She has met 06/20 long- term OT goals set at modified independence. The patient is having difficulty with alertness at times. Processing is slow. We are going to continue to monitor, and if we need to, we may need to get a Speech Therapy consult. The patient's son does work nights, and she would like home evaluation done prior to discharge. DISCHARGE PLAN: The patient is receiving 3 hours of PT, OT, Thursday through Thursday. The patient has daily rehab, nursing, and physiatry involvement as well as therapeutic recreational services 4 days per week. The patient has shown PATIENT'S NAME: LISA GILLIAM [facility] AGE: 71 Y [address] ROOM: [place] [address] LOCATION: [facility] ADMIT DATE: 10/08/2016 Consultation DISCHARGE DATE: FAMILY PHYSICIAN: COLTEN LUA MD ATTENDING PHYSICIAN: Paulie So functional improvement and is progressing. Please see her plan of care for specific goals. Plan is for patient to discharge in approximately 2 weeks. Plan is for patient to return to home here in [place]. LISSETTE DAI FOR PAULIE SO MD TD/modl /[id number] d: 10/20/162026 t: 11/13/16 1602, CONSULTATION REPORT
--- NOTE | ~2016-10-08 | DS ---
PATIENT'S NAME: EMELIA GILLIAM [facility] AGE: 71 Y [address] ROOM: [place] [address] LOCATION: [facility] ADMIT DATE: 10/08/2016 Discharge Summary DISCHARGE DATE: FAMILY PHYSICIAN: Andrei Land MD ATTENDING PHYSICIAN: Paulie So TO BE DISCHARGED TO HOME: On 11/03/2016 for outpatient therapy. She is at the present time alert, oriented. Vitals are as follows. Blood pressure 122/69, temperature 98.3, pulse 92, respirations 18. She can ambulate 350 with single-point cane and with supervision only. She is at the present time on the following medications. 1. Zometa/Reclast 200 mL on 11/03. 2. Aspirin 81 mg p.o. daily. 3. Os-Shay D 1000 mg p.o. daily. 4. Keflex 500 mg twice daily until 11/07, then stop. 5. Vitamin D 2000 units daily. 6. Faslodex 500 mg until 11/05. 7. Faslodex 500 mg IM one dose, 11/19/2016. 8. Faslodex 500 mg IM every four weeks. 9. Levothroid, Synthroid 25 mcg p.o. daily. 10. Theragran-M 1 tablet p.o. daily. 11. MiraLAX 17 g p.o. q.48 hours. 12. The patient's own medication, Ibrance 125 mg daily. 13. Tylenol 650 q.6 hours, do not exceed acetaminophen 4 g q.24 hours, give 36 of them. 14. Kula 5/325 one p.o. q.3-4 hours 36 of them, renewal per her family physician. 15. Flexeril 10 mg p.o. daily at bedtime. 16. Ultram 50 mg p.o. q.3 hours, give 36 of them, and renewal with her family physician placed. FINAL DIAGNOSES: 1. Unstable gait. 2. Dependent activities of daily and self-care. 3. Status post on 09/11/2016. a. Laminectomy and decompression with foraminotomy T4 and T5. 4. Posterolateral fusion with morselized allograft T2, T3, T4, and T6, T7, T8. 5. Posterior instrumentation with bilateral pedicle screws at T2, T3, T4 and T6, T7, T8. 6. Osteonecrosis. 7. Aortic valvular disease. PATIENT'S NAME: EMELIA GILLIAM [facility] AGE: 71 Y [address] ROOM: [id number] [place], [place] [address] LOCATION: [facility] ADMIT DATE: 10/08/2016 Discharge Summary DISCHARGE DATE: FAMILY PHYSICIAN: Andrei Land MD ATTENDING PHYSICIAN: Paulie So 8. Mitral regurgitation. 9. Left axillary dissection in 2013. 10. Right simple mastectomy in 2000. 11. Status post laparoscopic cholecystectomy. 12. Appendectomy in 1964. 13. Status post tubal ligation in 1993. 14. Hypothyroid. 15. The patient is not to drive until she is re-evaluated. She is given outpatient therapy PT/OT three times per week for the coming 4 weeks. I will see her thereafter. She should follow with Dr. Greenwood as he sees fit. Follow with Dr. Kang as he sees fit. Must follow with her family physician as soon as possible. Medication per discharge summary, and any renewal, addition, or subtraction per her family physician. All the above was explained to her in detail. She verbalized understanding and agreement. PAULIE SO MD WMS/modl /[id number] d: 11/02/16 1902 t: 11/04/16 0713, DISCHARGE SUMMARY
--- NOTE | 2016-10-08 12:40 | NUR ---
Patient admitted at 1000. Alert and oriented x 3. Up with 1A walker and gait belt. Admitted for posterior thoracic fusion. Hx of bilateral breast cancer. Mastectomy to L). Lymphodema R). OK to take BP on right. Mepilex dressing to mid back. C/D/I. VSS. Takes [place] and Valium for pain. [place] last at 0942. Meds whole with water. Uses call light appropriately. 2 sons very active in her care. Regular diet. Continent of bowel and bladder.
--- NOTE | 2016-10-08 16:26 | NUR ---
Significant Event: EVELIA AND SIM AT 1358. PARTICIPATED IN ALL THERAPIES. USES CALL LIGHT APPROPRIATELY Follow up:
--- NOTE | 2016-10-09 04:05 | NUR ---
Significant Event:A/O. 1 ASSIST W/ GB AND WALKER. MEPILEX TO BACK C/D/I COVERING POSTERIOR THORACIC FUSION SITE. HX OF BREAST CANCER. RIGHT ARM LYMPHODEMA,NEEDS EDEMAWARE??. OK FOR BPs. MASTECTOMY TO LEFT. TEDS OFF, CALF PUMPS ON. LEFT LEG DRAGGING OCASSIONALLY WHEN AMBULATING. PORT TO RIGHT CHEST FLUSHES BUT NO BLOOD RETURN. POSITIONAL??? VSS. PAIN ISSUES TONIGHT. TYLENOL & ULTRAM @ 0320. NORCO & VALIUM @ 0043. NORCO & FLEXERIL @ HS. WARM BLANKET TO BACK FOR ADDITIONAL RELIEF. ALARMS ON. CALLLIGHT IN REACH. Follow up:
[2016-10-09 06:32] LABS: BASOPHIL % 0.4 %; EOSINOPHIL # 0.1 K/uL (0.0-0.5); EOSINOPHIL % 3.1 %; HEMATOCRIT 25.6 % (33.0-46.0); HEMOGLOBIN 8.8 g/dL (10.0-15.0); IMMATURE GRANULOCYTE % 0.9 %; LYMPHOCYTE # 0.6 K/uL (0.8-4.0); LYMPHOCYTE % 24.3 %; MCH 33.5 pg (27.0-34.0); MCHC 34.4 gm/dL (32.0-36.5); MCV 97.3 fl (83.0-98.0); MONOCYTE # 0.3 K/uL (0.0-1.0); MONOCYTE % 12.8 %; NEUTROPHIL # (ANC) 1.3 K/uL (1.8-7.8); NEUTROPHIL % 58.5 %; NRBC % 0 /100WBC (0-0.00); RBC 2.63 M/uL (3.50-5.50); RDW-CV 13.3 % (11.9-14.6); WBC 2.3 K/uL (4.0-11.0)
[2016-10-09 07:01] LABS: ALBUMIN 2.3 gm/dL (3.5-5.0); ALK PHOS 182 IU/L (33-138); ALT 50 IU/L (12-78); ANION GAP 13.2 (10.0-19.0); AST 63 IU/L (10-40); BLOOD UREA NITROGEN 7 mg/dL (6-24); CALCIUM 8.1 mg/dL (8.5-10.5); CHLORIDE 105 mMol/L (96-110); CO2 25 mMol/L (22-32); CREATININE 0.6 mg/dL (0.5-1.1); ESTIMATED GFR (MDRD EQUATION) > 60; POTASSIUM 4.2 mMol/L (3.7-5.1); SODIUM 139 mMol/L (135-145); TOTAL BILIRUBIN 0.1 mg/dL (0.0-1.5); TOTAL PROTEIN 5.7 g/dL (6.0-8.4)
[2016-10-09 07:11] LABS: PLATELET COUNT 100 K/uL (150-450)
--- NOTE | 2016-10-09 16:47 | NUR ---
Significant Event: has taken norco 2 tbs and valium 5 mg, last at 1427. showered and dressed with ot. up with walker and 1 assist. had 2 small stools. isotoner glove to r hand. r hand and arm edematous. port was flushed by rn. no blood return. participated in therapies. Follow up:
[2016-10-09 17:05] LABS: BILIRUBIN URINE NEGATIVE (NEGATIVE); BLOOD URINE NEGATIVE /UL (NEGATIVE); GLUCOSE URINE NEGATIVE (NEGATIVE); KETONE URINE NEGATIVE (NEGATIVE); LEUKOCYTES URINE NEGATIVE /UL (NEGATIVE); NITRITE URINE NEGATIVE (NEGATIVE); PROTEIN URINE NEGATIVE (NEGATIVE); SPEC GRAVITY URINE 1.005 (1.003-1.035); UROBILINOGEN URINE NORMAL (NORMAL)
[2016-10-09 17:08] LABS: COLOR URINE YELLOW (YELLOW); TURBIDITY URINE CLEAR (CLEAR)
--- NOTE | 2016-10-09 20:20 | NUR ---
Significant Event: PATIENT IS ALERT/ORIENTED X 3. VSS, PULSE WAS A LITTLE TACHY AT 113. CHRONIC NUMBNESS AND TINGLING TO FEET FROM CHEMO-THIS WAS HERE PRIOR TO SURGERY. MEPILEX INTACT TO BACK. LEFT LEG AND ARM ARE WEAKER THAN RIGHT SIDE. LYPHEDEMA PRESENT ON LEFT ARM WELL. PORT FLUSHED. DRESSING NEEDS TO BE CHANGED WITH CHG DRESSING WITHIN THE NEXT 24 HOURS. PATIENT DID NOT WANT TO CHANGE CLOTHES, STAND BY ASSIST. HAS BEEN IN CHAIR, WILL NOTIFY WHEN NEEDING SOMETHING. CURRENTLY WATCHING A MOVIE ON HER PERSONAL LAPTOP. Follow up:
--- NOTE | 2016-10-10 08:30 | NUR ---
D: Therapeutic Recreation Initial Assessment on the 10/10/16. I: Patient seen for 2 units to begin initial evaluation. R: Patient's current living situation and status: house in town Home entrance steps: 3 railing but unstable Living with: son Spouses name: Divorce (3) 1 # of children: 2 Driving: yes, son does drive (car) Ambulating: I Equipment: N/A Hand Dominance: Right Clinical Coordinator strength: N/T spinal precautions Eye sight: glasses, cataracts Reading ability: N/T Hearing: [place], has aides but not with pt Speech: clear Cognition: alert Comprehension: fair Following directions: yes Initiating: yes Eye contact: god Affect: bright/bland COMMUNITY INVOLVEMENT: grocery shopping, out to eat occ., 2 AA meetings a week LEISURE INTERESTS: watch TV occ. (fall sports), watch old movies, read (books, newspaper) lap top, (Internet, games, movies), likes outdoors, gardening, birds Patient is referred by medical staff for treatment and evaluation in the following areas: Community Skills, Functional Leisure Skills, Participation, Leisure Education/Behaviors, Family Education, Cognitive, Emotional. Information obtained: Interview , Chart Review, Observation, other. BARRIERS TO LEISURE: Financial, Physical, Lifestyle (tobacco, recovering alcoholic, reports hx of depression Patient determined to be: APPROPRIATE FOR THERAPEUTIC RECREATION ASSESSMENT. TREATMENT WILL INCLUDE: Community living skills training Functional leisure development Physical skills development Cognitive skills development Social skills development Leisure education Emotional/behavioral adaptation Family education Community resources/packet TARGET EQUIPMENT/INFORMATION: Parking Permit HAS IN PLACE Community Resources Energy conservation in community setting Van/Service/Taxi Scrip Adapted Leisure Equipment Stress management/Relaxation techniques Functional car transfers Leisure Education Behaviors: Attitude, Awareness, Participation. Patient functional skills level and potential: Good, pt demonstrates fair mobility with concerns for coping and pain/stress management. Patient oriented ot TR services on Rehab unit. Pt/family provided input into goals setting and plan of care. Pt's goal is to be independent with home task and for stair management. P: Target date set with personal goals established. Will continue with POC focusing on pt/family training and education. For additional information please see Nursing Data Base, PT, OT, CM, ST, initial assessments to [facility] and Interdisciplinary Assessments.
--- NOTE | 2016-10-10 13:50 | NUR ---
Significant Event: Follow up: UP to toilet, up to chair with standby assist, gait belt and walker. Moves very well. Pain to back controlled with norco and valium q4 hours. Incision to back is changed today, stitches in place, incision healing , no drainage. out to therapy several times today. Pleasent and cooperative.
--- NOTE | 2016-10-11 02:35 | NUR ---
Significant Event:A/O. 1 standby assit with gaitbelt and walker. Mepilex to back c/d/i. Port R) chest dressing occlusive; flushes but does not aspirate. Lymphodema to R) arm. Massage therapy started on right arm yesterday to decrease lymph. Edema BLE. Compression socks off at HS, calf pumps on. 2L oxygen/nc at HS. 2Norco and 1 Valium for pain control q4h. Call light within reach. Bed alarm on. Follow up:
--- NOTE | 2016-10-11 16:05 | NUR ---
Significant Event: Patient alert and oriented x 3. Up with 1A walker and gait belt. Morgan at 1314. Valium at 1313. Mepilex to back c/d/i. Port R) upper chest. Lyphedema to right arm. Patient thought may be better to start taking pressures in her leg. 2L O2 at night. Uses call light appropriately. Follow up:
--- NOTE | 2016-10-12 04:22 | NUR ---
Alert and oriented. Calls for assistance as needed. Showered last evening per pt request. Dsing to upper back dry and intact. Takes [place] 2 tabs and Valium for pain control. Last given at 2313. Pt requests that these be repeated prior to 6:00 am shift change. Up with one assist gait belt and walker.
--- NOTE | 2016-10-12 10:29 | NUR ---
A-SCREENED D/T LOS; NEW ADMIT TO [facility] S/P POSTERIOR THORACIC FUSION. HX OF BILAT BREAST CA; MASTECTOMY TO L). LYMPHADEMA TO R). HT: 64 IN. WT: 79.3 KG. BMI: 29.4 LABS: ALB 2.3, PREALB 14.0, LFT'S ELEVATED MEDS: VALIUM, PRN BOWEL MEDS, SENOKOT, MIRALAX, ULTRAM, ZOFRAN, NARCAN, MVI, VIT D. DIET RX: REGULAR. PO INTAKE SINCE ADMIT TO [facility] HAS BEEN 50-100%; AVG IS 85%. NO REPORT OF WT LOSS LAB ASST. APPETITE IS GOOD. EST NUTR NEEDS: 3420-0737 KCALS (20-25 KCALS/KG) 79-95 GM PROTEIN (1.0-1.2 GM/KG) 1 ML FLUID PER KCAL D-NOT AT NUTRITION RISK AT THIS TIME; NO NUTRITION DX IDENTIFIED I-CONTINUE W/CURRENT DIET RX M/E-WILL ASSIST NEEDED
--- NOTE | 2016-10-12 14:21 | NUR ---
Significant Event: Patient alert and oriented x 3. Up with SBA walker and gait belt. [place] and valium given at 1043. Dressing to upper back C/D/I. Port R) upper chest. Lyphedema to right arm. BP to be taken in right arm. 2L O2 at night. Attended AA meeting here at the hospital this morning and the patient said it was very encouraging and helped her greatly. Uses call light appropriately. Follow up:
--- NOTE | 2016-10-13 03:39 | NUR ---
Significant Event:A/o. 1 ASSIST WITH GAITBELT AND WALKER. oXYGEN @ 2L/NC AT NIGHT. MEPILEX TO SPINE C/D/I. LYMPHODEMA TO RUE. PORT TO RIGHT CHEST FLUSHES BUT DOES NOT RETURN BLOOD. 2NORCO AND 1 VALIUM FOR PAIN CONTROL, LAST AT 0228. COMPRESSION SOCKS DURING DAY; CALF PUMPS AT NIGHT. CALL LIGHT IN REACH. Follow up:
[2016-10-13 04:35] LABS: EOSINOPHIL % 0.1 %; HEMATOCRIT 25.6 % (33.0-46.0); HEMOGLOBIN 8.4 g/dL (10.0-15.0); IMMATURE GRANULOCYTE # 0.1 K/uL (0.0-0.3); IMMATURE GRANULOCYTE % 0.6 %; LYMPHOCYTE # 0.7 K/uL (0.8-4.0); LYMPHOCYTE % 7.9 %; MCH 32.6 pg (27.0-34.0); MCHC 32.8 gm/dL (32.0-36.5); MCV 99.2 fl (83.0-98.0); MONOCYTE # 0.5 K/uL (0.0-1.0); MONOCYTE % 5.6 %; MPV 8.6 fl (9.4-12.4); NEUTROPHIL # (ANC) 7.3 K/uL (1.8-7.8); NEUTROPHIL % 85.8 %; NRBC % 0 /100WBC (0-0.00); RBC 2.58 M/uL (3.50-5.50); RDW-CV 13.5 % (11.9-14.6); WBC 8.5 K/uL (4.0-11.0)
[2016-10-13 04:36] LABS: PLATELET COUNT 233 K/uL (150-450)
[2016-10-13 04:49] LABS: ALBUMIN 2.3 gm/dL (3.5-5.0); ALK PHOS 267 IU/L (33-138); ALT 55 IU/L (12-78); ANION GAP 12.3 (10.0-19.0); AST 57 IU/L (10-40); BLOOD UREA NITROGEN 10 mg/dL (6-24); CHLORIDE 100 mMol/L (96-110); CO2 25 mMol/L (22-32); CREATININE 0.6 mg/dL (0.5-1.1); ESTIMATED GFR (MDRD EQUATION) > 60; POTASSIUM 4.3 mMol/L (3.7-5.1); SODIUM 133 mMol/L (135-145); TOTAL PROTEIN 6.2 g/dL (6.0-8.4)
[2016-10-13 04:55] LABS: TOTAL BILIRUBIN 0.2 mg/dL (0.0-1.5)
--- NOTE | 2016-10-13 13:41 | NUR ---
Significant Event: PATIENT UP 1 ASSIST, WALKER, GAIT BELT. ALERT AND ORIENTED X3. NORCO 2 TABS AND VALIUM FOR PAIN. MEPILEX TO BACK CHANGED TODAY, CHANGE Q3DAYS. COOPERATIVE WITH CARES. VITALS STABLE ON ROOM AIR. 2 L O2 AT NIGHT. CONTINENT OF BOWEL AND BLADDER. PORT TO RIGHT CHEST FLUSHES WELL WITH NO BLOOD RETURN. EDEMA GLOVE TO RIGHT HAND. EDEMA TO ENTIRE RIGHT ARM. NO BP IN LEFT ARM. Follow up:
--- NOTE | 2016-10-14 12:54 | NUR ---
D: TR progress note for 10/14/16. I: Pt seen for 2 units for 834 leisure education, cognitive thinking task, fine motor skills, coping skills and functional transfers. R: Pt seen for functional skills building working on mobility, cognitive thinking, coordination and fine motor skills using card to increase independence with UE and increase coping strategies post discharge. Pt transferred sit > stand form recliner SBA, ambulated with walker 4 feet to/from sink SBA, SBA for hand hygiene at sink and pivoted to WC with walker SBA with cues for safety. Pt able to sort in suits with 98% accuracy and completed numerical task clarence-korey utilizing BUE with extra time allotted with 100% accuracy. Pt utilized BUE to manage and maneuver cards independently with fair coordination and motor skills with occasional cues to remain on task. Education done utilization of leisure to promote recovery. P: Will continue to see to address goals and plan of care.
--- NOTE | 2016-10-14 14:03 | NUR ---
Significant Event: Patient alert but forgetful. 1 assist. Mepilex to back changed today due to coming loose. Port to right chest deaccessed due to dressing not being occulusive and not needing access at this time. Right arm has lymphedema. Taking pain medication every 4 hours per patient request. Follow up: Will see tomorrow at the cancer center.
--- NOTE | 2016-10-15 03:34 | NUR ---
Significant Event:Drowsy. 1assist w/ gaitbelt and walker. Mepilex to back intact, knickel size drainage showing at distal end. Right arm lymphodema, edema wear sleeve removed. Compression socks removed, calf pumps applied. Patient requests 2 Spangle and 1 Valium for pain q4H. Last Spangle and valium given at 0130. Appt w/ Dr. Holm [facility] @ 1100. Bed alarm on. Call light within reach. Follow up:
--- NOTE | 2016-10-15 11:48 | NUR ---
D: TR progress note for 10/15/16. I: Pt seen for 2 units at 1110 in group session for education on relaxation techniques, stress/pain management, coping strategies, and leisure education. R: Pt seen for functional skills building working on relaxation techniques. stress/pain management, and continued education on coping skills to increase self awareness of options in anticipation for discharge home. Pt actively participated in session, completed functional social communication skills independently which involved personal introduction of self and identification of ways she dealt with pain/stress prior to hospitalization other than medication. Education completed by verbal discussion and modeling on the signs and symptoms the physical stress/pain can cause on the body and it's affects along with identification of coping strategies, relaxation techniques using music, playaways, aromatherapy, breathing exercises and leisure activities. Pt transferred sit > stand from WC SBA, ambulated 5 feet to bathroom SBA and transferred into toilet SBA. P: Will continue to see to address goals and plan of care.
--- NOTE | 2016-10-15 13:32 | NUR ---
Significant Event:Pt alert and orientated x 3, but can be forgetful @ times. Continue to monitor meplix on back incision, reported sutures intact, possible remove later this week. Will check after therapy to see if any new drainage from being up. Right arm/hand swollen, has special sleeve to wear durint the day to help with swelling. Reported today she is trying to go every 6 hours for pain meds, she did try 1 [place], and valium @ noon, and did request the second one 1345. Pt reported this am that she had not taken her Miralax yesterday, and was going to take it today as she had not went, and she did take it this am. She has had 3 BM lrg soft/loose. Up with 1 assist walker, left foot drags sometimes. Bilateral tingling lower legs. Assessment unchanged note charting. Pt has been pleasant and cooperative with plan of care. Follow up:pain control, elevate right arm, monitor BM.
--- NOTE | 2016-10-16 00:19 | NUR ---
Significant Event: Alert/oriented. SBA walker/gb. VSS, 2L oxygen at HS. Back incision with sutures covered with mepilex dressing, CDI. RUE net sleeve applied and edema glove removed for HS. Takes norco after supper for back pain and flexiril at bedtime for muscle tightness. Able to make needs known. Follow up:
--- NOTE | 2016-10-16 13:39 | NUR ---
Significant Event: Patient alert and oriented but forgetful. Complains of feeling foggy today. Decreased some medications. 1 assist. Mepliex to back intact. Wears oxygen at 2 liters at night. Has some lymphedema to right arm and hand. Wears a net sleeve to right arm and an edema glove to right hand.
--- NOTE | 2016-10-16 14:40 | NUR ---
[facility] Case Management Prefunctioning and Psycho-Social Initial Assessment for 10/08/16 and Case Conference Note for 10/14/16 D: Initial Chairman EmeritusLine Palletizer and Case Conference Note. I: Input from: patient, family, Lissette BoothW R: Reason for admission: 10/01/16, posterior thoracic fusion T2-T8 related to metastasis to spinal column. Primary CA breast. Admission Date to [facility]: 10/08/16 Admission Date to Hospital: 10/01/16 Prior level of functioning: patient was independent with adl's, driving and household. Prior living situation: trilevel house Financial resources/expectations: patient has Medicare and [employer] [place]. Resources used: none. Resources available: HHC, outpatient therapy, SNF, [facility], [facility], DME Family support available: son Understands nature of health condition: yes Recognizes impact of health condition on lifestyle: yes Vocational/Educational: retired Behavior/Emotional needs: cues for safety. Monitor for signs and symptoms of depression and anxiety. Legal concerns: none. Discharge goal: home with support. Assessment: Lisa is a 71 year old woman from [place] admitted after surgery. She has support of her son, but also wants to be as independent as possible prior to d/c. Team conference was held and plan is to d/c in approx. 2 weeks. Will follow. Orientation to the program and CM services completed with Lisa. Initial plan of care and estimated length of stay discussed, disclosure statement reviewed including patient assessment rights. P: Target date and individual goals established. Please see POC for details. For additional information please see Nursing Data Base, PT, OT, TR, Initial assessments to [facility].
--- NOTE | 2016-10-17 04:38 | NUR ---
Patient alert and oriented, but can be forgetful. Alarms at all times. Transfers 1A gb/walker. VSS. Meplix to back incision, c/d/i. Lymphedema to R) arm, wears net sleeve and edema glove. 2L O2 on at HS. Cooperative with cares.
--- NOTE | 2016-10-17 08:40 | NUR ---
A - NUTRITION FOLLOW-UP. WEIGHT STABLE SINCE ADMIT TO [facility]. LABS: NA 133, ALB 2.3, PRE-ALB 14 (NO NEW PRE-ALB). NEW MEDS: VALIUM DIET: REGULAR. INTAKE 75% X9 MEALS, LAST 3 MEALS 100%. EST NEEDS: 6128-8459 KCAL, 67-81 GRAMS PROTEIN, FLUID NEEDS: 1ML/KCAL D - NO NUTRITION DIAGNOSIS AT THIS TIME. I - CONTINUE WITH CURRENT DIET RX. M/E - GOAL: PT WILL CONTINUE TO CONSUME >75% OF MEALS IN 5-7 DAYS.
--- NOTE | 2016-10-17 12:19 | NUR ---
D: TR progress note for 10/17/16. I: Pt seen for 2 units at 1100 for community integration skills building, functional transfers, and safety awareness. R: Pt seen for functional skills building working on mobility, safety, and functional transfers to increase independence with mobility skills for community re-entry. Pt given visual demonstration and verbal instructions on proper technique for car transfers prior to pt completing them. Pt transferred sit > stand from WC CGA with cues for hand placement, ambulated with walker 5 feet to/from vehicle SBA and transferred in/out of vehicle CGA with verbal cue for hand placement. Pt was SBA for BLE management and positioning of self with seat surface adapted using trash bag to ease task. Pt tolerated ride with no C/o pain, discomfort or problems with nausea with noted tangent comments throughout car ride. P: Will continue to see to address goals and plan of care.
--- NOTE | 2016-10-17 14:44 | NUR ---
Significant Event: Follow up: Much pain upon arising after taking no pain medications throughout the night. [place] 2 tabs every 4-5 hours today, no valium. Out to [employer]pay gym today , up to chair, up to toilet. Patient is much more alert this afternoon and conversive. Bed and chair alarm in use.
--- NOTE | 2016-10-18 04:29 | NUR ---
Patient alert and oriented. Transfers 1A GB/Walker. [place] last given at 2315. [place] to back incision with small amount of shadow drainage, to be changed this am. Lymphedema to R) arm, wears net sleeve and edema glove. On 2L of O2 at HS. Cooperative with cares.
--- NOTE | 2016-10-18 13:56 | NUR ---
Significant Event: Patient alert and oriented. Up with 1 assist. Patient wants to be independent in room. Therapy will re-evaluate on Thursday. For now continue 1 assist. Lymphedema to right arm and had. Net sleeve to right arm and edema glove right hand. Taking [place] for pain. here and saw patient. Started her on antibiotic for 7 days due to drainage from incision. Dressing changed. Orders to change PRN saturations. will see her again on Thursday. Follow up: There is a AA meeting on Thursday at 11am in the conference center.
--- NOTE | 2016-10-19 04:44 | NUR ---
Patient alert and oriented. Transfers 1A gb/walker. Went for a walking in the [place] this evening. To be reevaluated for independence in room by therapy on thursday. Lymphedema to R) arm, wears net sleeve and edema glove. Last [place] 329. Started on antibiotic as precaution for drainage to back. Dressing changed to ABD and island barrier. Would like to attend AA meeting in confrence room D at 1100. Cooperative with cares.
--- NOTE | 2016-10-19 13:38 | NUR ---
Significant Event: PATIENT UP 1 ASSIST, WALKER, GAIT BELT. ALERT AND ORIENTED X3. FORGETFUL AT TIMES, NEEDS REINFORCEMENT OF WHEN TO CALL NURSE. VITALS STABLE ON ROOM AIR. EDEMAWEAR TO RIGHT ARM, GLOVE TO RIGHT HAND. PORT NOT ACCESSED. [place]CO PRN FOR PAIN. AA MEETING TODAY. DRESSING TO BACK INTACT. BAG BATH TODAY. HOPING TO BE INDEPENDENT IN ROOM PER THERAPY TOMORROW. Follow up:
--- NOTE | 2016-10-20 04:33 | NUR ---
Patient alert and oriented. Transfers 1A gb/walker. Needs reinforcement to use call light and not just get up. Dressing changed to back incision, ABD and island barrier. VSS, CPAP at night. Lymphedema to R) hand, net sleeve and edema glove. Last [place] at 0315. Cooperative with cares.
--- NOTE | 2016-10-20 13:17 | NUR ---
Significant Event: Patient alert and oriented. Forgetful at times. 1 assist. Right arm lymphedema. Wears a net sleeve and edema glove to right hand. Island barrier dressing has some shadow drainage to back. Taking [place] for pain. Wears oxygen at night. Follow up:
--- NOTE | 2016-10-21 04:58 | NUR ---
Significant Event:A/O. SOME FORGETFULNESS TO CALL FOR ASSISTANCE. ALARMS PLACED. EDEMA GLOVE AND MESH EDEMA SLEEVE REMOVED AT HS. REFUSED CALF PUMPS. COMPRESSION SOCKS OFF. DRESSING TO BACK INTACT; SHADOW DRAINAGE AT DISTAL END MARKED. 1 ASSIT WITH GAITBELT AND WALKER. NORCO FOR PAIN, LAST AT 0455. BED ALARM ON. CALL LIGHT WITHIN REACH. Follow up:
[2016-10-21 06:20] LABS: BASOPHIL % 0.3 %; EOSINOPHIL % 1.1 %; HEMATOCRIT 26.1 % (33.0-46.0); HEMOGLOBIN 8.5 g/dL (10.0-15.0); IMMATURE GRANULOCYTE % 0.3 %; LYMPHOCYTE # 0.6 K/uL (0.8-4.0); LYMPHOCYTE % 15.9 %; MCH 31.6 pg (27.0-34.0); MCHC 32.6 gm/dL (32.0-36.5); MONOCYTE # 0.5 K/uL (0.0-1.0); MONOCYTE % 12.8 %; MPV 8.2 fl (9.4-12.4); NEUTROPHIL # (ANC) 2.5 K/uL (1.8-7.8); NEUTROPHIL % 69.6 %; NRBC % 0 /100WBC (0-0.00); RBC 2.69 M/uL (3.50-5.50); RDW-CV 13.6 % (11.9-14.6); WBC 3.6 K/uL (4.0-11.0)
[2016-10-21 06:23] LABS: PLATELET COUNT 353 K/uL (150-450)
[2016-10-21 06:37] LABS: ALBUMIN 2.4 gm/dL (3.5-5.0); ALK PHOS 211 IU/L (33-138); ALT 33 IU/L (12-78); ANION GAP 10.2 (10.0-19.0); AST 37 IU/L (10-40); BLOOD UREA NITROGEN 10 mg/dL (6-24); CALCIUM 8.6 mg/dL (8.5-10.5); CHLORIDE 104 mMol/L (96-110); CO2 28 mMol/L (22-32); CREATININE 0.7 mg/dL (0.5-1.1); ESTIMATED GFR (MDRD EQUATION) > 60; POTASSIUM 4.2 mMol/L (3.7-5.1); SODIUM 138 mMol/L (135-145); TOTAL PROTEIN 6.5 g/dL (6.0-8.4)
[2016-10-21 06:38] LABS: MAGNESIUM 1.9 mg/dL (1.8-2.6); TOTAL BILIRUBIN 0.1 mg/dL (0.0-1.5)
--- NOTE | 2016-10-21 13:28 | NUR ---
D: TR progress note for 10/21/16. I: Pt seen for 2 units at 1230 for leisure education, RUE motor skills, coping strategies and functional transfers. R: Pt seen for functional skills building working on mobility, RUE motor skills, and coping strategies to increase independence with all leisure task. Pt transferred sit > stand from recliner SBA, pivoted to WC with walker SBA and transferred into WC SBA with good recall on hand placement. Session completed outdoors, transferred sit > stand from WC SBA, ambulated with walker 3 feet to low park bench with surface adapted using cushion and transferred on/off park bench SBA with verbal cues x1 for hand placement. Pt worked on motor skills and leisure task doing adapted sewing exercises. Pt safely demonstrated ability to complete single and whip stitches without difficulty demonstrating good motor skills and coordination with BUE. Pt had no problems with thread tension and independent with sequencing and attention to task. Education continued on use of leisure for coping and to promote recovery. P: Will continue to see to address goals and plan of care.
--- NOTE | 2016-10-21 14:47 | NUR ---
Significant Event: Pt is a/o. Forgetful @ times. Cooperative with cares. Up to BR with walker, GB, 1 assist. Wears glove & mesh sleeve to R) hand/arm. Back dressing intact with shadow drainage. [place] @ 1025. Wears O2 @ hs. Tabs/chair alarm. Follow up:
--- NOTE | 2016-10-22 03:44 | NUR ---
Significant Event:A/O. Forgetful at times. Alarms at all times. 1 assist transfers with gaitbelt and walker. Lymphodema to R) arm; mesh sleeve removed at HS. [place] glove missing, patient unsure where she put it. Compression socks daily, removed at HS. Calf pumps applied. Edema to BLE minimal this evening. VSS on room air. 2L Oxygen per nasal cannula at [facility]. Dressing to back intact. Drainage marked. 2 [place] at HS. Call light within reach. Alarm on. Follow up:
--- NOTE | 2016-10-22 18:37 | NUR ---
Significant Event: PT HAS DRESSING INTACT TO MID BACK, DRAINAGE IS LARGER THAN THE MARKED AREA. TO COME AND SEE SOON. PT GIVEN NORCO AT 1154, AND 1712 TO KEEP PAIN UNDER CONTROL, RELIEF NOTED. PT AMBULATED IN THE SOMERS WITH NURSES AND REPORTED THAT SHE WISHES SHE COULD GET UP IN HER ROOM WITHOUT AND THAT SHE FEELS LIKE SHE IS TIED DOWN. SPEECH EVALUATED TODAY, PT TOOK HER NOON PILLS WITH YOGURT AND WANTS TO USE PUDDING OR YOGURT TO TAKE HER PILLS. Follow up: NEED TO FIGURE OUT IM INJECTION ORDERED BY ONCOLOGY, CHANGE BACK DRESSING.
--- NOTE | 2016-10-23 02:00 | NUR ---
Significant Event:A/O. 1 assist w/ GB and walker. Lymphodema to R) arm. Mesh sleeve and edema glove removed at HS. Compression socks removed. Dr. Greenwood in and removed the last 3 sutures and replaced with 5 new "tighter" sutures. Cultured fluid below sutures. Replaced ABD and Island Barrier dressings. REinforced distal end of dressing with clear tegaderm to prevent rolling up with movement. [place] for pain. Last at 2200. Releif noted. Bed alarm on. Call light within reach. Follow up:
--- NOTE | 2016-10-23 08:49 | NUR ---
A-NUTRITION F/U CBW: 74.3 KG; STABLE LABS: ALB 2.4, PREALB 14.0, CRP 6.63. NO CHANGE IN PREALB FROM LAST ONE; CRP ELEVATED AND PT WAS STARTED ON ANTIBIOTICS ON 10/18 MEDS: CLEOCIN, MIRALAX, FLORASTOR DIET RX: REGULAR. PO INTAKE 50-100% FOR THE MOST PART. AVG SINCE LAST F/U IS 75%. EST NUTR NEEDS: 2566-3371 KCALS AND 67-81 GM PROTEIN D-NOT AT NUTRITION RISK; NO NUTRITION DX IDENTIFIED I-CONTINUE W/CURRENT DIET RX M/E-ASSIST NEEDED
--- NOTE | 2016-10-23 12:01 | NUR ---
Patient alert and oriented but forgetful. Incision to back covered. sent a culture from surgical site last evening. Lymphedema to right arm and hand. Patient wears a net sleeve and edema glove. Taking [place] for pain.
--- NOTE | 2016-10-23 16:08 | NUR ---
D: Claim Manager Team Conference Follow up for 10/21/16 I: Input from patient/family R: Met with: patient, family, Lissette Booth SEAM STAY STITCHER Discussed rehab plan, patient progress, discharge plan and estimated length of stay of d/c in approx. 7-10 days. Patient/Family Preference: patient is in agreement. Anticipated discharge disposition: home with [facility] and support of son. Education completed: Education was completed with patient regarding length of stay, progress in therapy and d/c plan. Assessment/Recommendation: Team recommends d/c in approx. 7-10 days. Team is also very concerned about patient as her cognition has not been very good and seems to be having difficulty processing. P: Case Coordination: Lisa is a 71 year old woman from [place], [place]. She has support of her son. Will follow and assist as needed.
--- NOTE | 2016-10-24 07:13 | NUR ---
Significant Event:Amb in room with sba and walker, alarms in place. Drsg to back dry/intact. Gav [place] 2 tabs twice, last dose at 0505--slept well but rated pain at 8 when up to br this a.m. Unaccessed port-a-cath to upper chest. Rt arm/hand with lymphedema--wears stockingette and isotoner glove during the day. O2 on at 2 L at night. Follow up:Awaiting cultures done on back wound.
--- NOTE | 2016-10-24 13:57 | NUR ---
D: TR progress note for 10/24/16. I: Pt seen for 2 units at 1230 for community integration skills building, functional transfers and safety awareness. R: Pt seen for functional skills building working on mobility, endurance, safety and community skills in anticipation for discharge back into community. Pt transferred sit > stand from recliner SBA, pivoted to with walker SBA and transferred into SBA with good safety recall on hand placement. Pt taken to [facility] to simulate community environment. Pt transferred sit > stand from WC SBA, ambulated a total of 75 feet with walker down aisles and around obstacles. Pt able to retrieve 10/10 objects from shelves SBA utilizing BUE with good safety awareness. Pt independent with reading all coates tags, store items and signs with no C/o fatigue or pain. P: Will continue to see to address goals and plan of care.
--- NOTE | 2016-10-24 16:04 | NUR ---
Significant Event: Patient alert and oriented X 3. Up with 1A walker and gait belt. Impulsive at times. Alarms. [place] given x 2. Last given at 1435. Incision to back C/D/I. Net sleeve and edema glove to right arm. Cooperative with cares. Last BM 10/23. Continent of bowel and bladder. Follow up:
--- NOTE | 2016-10-25 02:23 | NUR ---
Significant Event: Patient is alert and oriented but forgetful. Alarm for safety. VSS. One assist with GB/Walker. Dressing to back C/D/I. Still waiting for results of her cultures from her back wound. Is on oral ABX. Has been taking her [place] 2 tabs for pain was given at 2100 last evening and wanting another this AM around 0300. Wakes up in a lg amt of pain in the mornings. Has Lymphodema to her R) arm wear a compression net and an edema glove to her arm and hand. B/P were running low yesterday AM was 115/62 last evening. Implanted port unaccessed. Follow up:
--- NOTE | 2016-10-25 14:20 | NUR ---
Significant Event: PATIENT UP 1 ASSIST, WALKER, GAIT BELT. ALERT AND ORIENTED BUT DOES NOT FOLLOW DIRECTIONS, ALARMS AT ALL TIMES. VITALS STABLE ON ROOM AIR, 2 L O2 AT NIGHT. NORCO PRN FOR PAIN, 2 TABS 5-325. CHANGE DRESSING TO BACK PRN, NO NEED TO CHANGE IT TODAY. RT ARM SLEEVE AND RT HAND GLOVE FOR LYMPHEDEMA. RIGHT CHEST PORT NOT ACCESSED. CONTINENT OF BOWEL AND BLADDER. FEEDS SELF WELL. NO ISSUES SWALLOWING. AA MEETING TOMORROW. Follow up:
--- NOTE | 2016-10-26 04:30 | NUR ---
Significant Event: Patient is alert and oriented, VSS. Up one assist with GB/walker gait is steady. Takes meds whole. Is spontanous needs to be alarmed but she c/o that she cant get up independently. O2 on at HS at 2 liters per NC. Has lymphedemia to her right arm and has a compression sleeve and an edema glove for that arm. Took [place] x 2 last at 0255. Implanted port to upper right chest not accessed. Follow up: AA meeting
--- NOTE | 2016-10-26 12:49 | NUR ---
Significant Event: PATIENT UP 1 ASSIST, WALKER, GAIT BELT. ALERT AND ORIENTED TO PERSON AND PLACE BUT IS OFTEN FORGETFUL. ALARMS AT ALL TIMES. CONTINENT OF BOWEL AND BLADDER. BM TODAY. WENT TO AA MEETING TODAY. [place] 2 TABS AT A TIME PRN. NO ISSUES SWALLOWING. VITALS STABLE ON ROOM AIR. O2 2L AT NIGHT. DRESSING TO UPPER BACK, MAY CHANGE PRN. EDEMA TO RIGHT ARM, EDEMA SLEEVE AND GLOVE ON. Follow up:
--- NOTE | 2016-10-27 03:07 | NUR ---
Significant Event: Patient alert and oriented, VSS. Up 1 assist GB/Walker. Gait is steady. Patient is getting frustrated with nursing due to being alarmed. Feels she should be able to be up ad bakari. Nursing asks her to speak with Therapy about it today. Has lymphodemia to her right arm, wear a net compression sleeve and an edema glove to her hand. Has a dressing to her mid back which is C/D/I. Wound to her back was cultured and is negative for organisms. Has chronic back pain and takes [place] 2 tabs q 5 hrs. O2 at night at 2 liters per NC. Follow up:
[2016-10-27 06:08] LABS: BASOPHIL % 0.4 %; EOSINOPHIL # 0.1 K/uL (0.0-0.5); EOSINOPHIL % 3.1 %; HEMATOCRIT 28.2 % (33.0-46.0); IMMATURE GRANULOCYTE % 0.8 %; LYMPHOCYTE # 0.7 K/uL (0.8-4.0); LYMPHOCYTE % 27.5 %; MCH 31.3 pg (27.0-34.0); MCHC 31.9 gm/dL (32.0-36.5); MCV 97.9 fl (83.0-98.0); MONOCYTE # 0.4 K/uL (0.0-1.0); MONOCYTE % 16.3 %; MPV 8.3 fl (9.4-12.4); NEUTROPHIL # (ANC) 1.3 K/uL (1.8-7.8); NEUTROPHIL % 51.9 %; NRBC % 0 /100WBC (0-0.00); PLATELET COUNT 348 K/uL (150-450); RBC 2.88 M/uL (3.50-5.50); RDW-CV 13.6 % (11.9-14.6); WBC 2.6 K/uL (4.0-11.0)
[2016-10-27 06:27] LABS: ALBUMIN 2.5 gm/dL (3.5-5.0); ALT 27 IU/L (12-78); ANION GAP 11.2 (10.0-19.0); AST 30 IU/L (10-40); BLOOD UREA NITROGEN 11 mg/dL (6-24); CALCIUM 8.7 mg/dL (8.5-10.5); CHLORIDE 105 mMol/L (96-110); CO2 28 mMol/L (22-32); CREATININE 0.6 mg/dL (0.5-1.1); ESTIMATED GFR (MDRD EQUATION) > 60; POTASSIUM 4.2 mMol/L (3.7-5.1); SODIUM 140 mMol/L (135-145)
[2016-10-27 06:29] LABS: ALK PHOS 156 IU/L (33-138); TOTAL PROTEIN 6.5 g/dL (6.0-8.4)
[2016-10-27 06:31] LABS: TOTAL BILIRUBIN 0.2 mg/dL (0.0-1.5)
--- NOTE | 2016-10-27 14:42 | NUR ---
Pt is alert and oriented to person, place and time. Pt is pleasant and cooperative with staff. Pt has denied pain this shift. Pt will go home tomorrow and has tested out on all the required items for therapy. PT's IV site is not working and plans to discontinue it today. Pt's does her peritoneal dialysis for her. Pt has not needed insulin today per sliding scale.
--- NOTE | 2016-10-27 15:06 | NUR ---
Pt is alert and oriented to person palce and time. Pt has c/o pain in her lower back this shift and receives [place] for pain. Dressing to back dry and intact. Incision clean and dry, edges well approximated. No redness or drainage notes. Pt is a stand by assist with transfer. Pt does not always use call light and when she does, she pulls the light then gets up with out assist. Pt is steady on her feet. Has worked well with therapy. No conserns voiced.
--- NOTE | 2016-10-28 04:49 | NUR ---
Alert and oriented, calls for assistance as needed. Up with one assist, gaitbelt and walker. Takes [place] 2 tabs for back pain, last given at 0400. Also has Flexeril available if needed. Dsing to back is dry and intact. Home eval visit is scheduled for Thu.
--- NOTE | 2016-10-28 11:04 | NUR ---
A-NUTRITION F/U CBW: 72.9 KG (STANDING SCALE). WT LAST F/U WAS 74.3 KG (STANDING SCALE); WT HAD BEEN STABLE PRIOR TO THIS CBW. LABS: GLU 103, ALB 2.5, PREALB 16.0; PREALB UP FROM 14.0 10/21 CRP WAS 6.63; NO CURRENT CRP MEDS: ULTRAM DIET RX: REGULAR. PO INTAKE IS GOOD W/75-100% EST NUTR NEEDS: 2149-8185 KCALS AND 67-81 GM PROTEIN D-AT NUTRITION RISK W/INADEQUATE INTAKE OF NUTRIENTS R/T CATABOLIC DZ AEB RECENT WT LOSS. I-START ENSURE ENLIVE BID TO PROVIDE ADDITIONAL NUTRIENTS M/E-GOAL: CONTINUED PO INTAKE OF >/=75% OF MEALS FOR DURATION OF ADMIT AND >/=50% OF SUPPLEMENT BY NEXT F/U 1)F/U PO INTAKE, SUPPLEMENT, WT, AND POC IN 3-5 DAYS 2)ASSIST NEEDED
--- NOTE | 2016-10-28 12:28 | NUR ---
D: TR progress note for 10/28/16. I: Pt seen for 2 units at 915 for community integration skills building, safety awareness and discharge planning. R: Pt seen for functional skills building working on community integration skills, safety and mobility in anticipation for discharge back into community with son. Education and review done on energy conservation in community setting, safety when traveling long distances in vehicle, safety with inclement weather (hot/cold) and slick surfaces. Discussed use of bathroom when out with opposite sex and no unisex bathroom available. Education and review done on not operating motorized vehicle until receiving Physician's approval and reviewed community safety concerns. Pt transferred sit > stand from bed mod I, ambulated to/from WC with walker SBA, transferred in/out of WC mod I and transferred into regular chair SBA. P: Will continue to see to address goals and plan of care.
--- NOTE | 2016-10-28 15:47 | NUR ---
Significant Event: PT ALERT AND ORIENTED. UP WITH STANDBY ASSIST IN THE ROOM AMD TO THE BATHROOM. OUT OF THERPY. RADIATION DONE TODAY. [place]CO 2 TABS FOR PAIN. LAST AT 1220. Follow up:
--- NOTE | 2016-10-29 03:10 | NUR ---
Significant Event:Patient alert and oriented. Stand by assist with walker. Mepilex to back C/D/I. Edema glove and edemaware sleeve removed from R) arm at HS. Lymphodema present to entire R) arm. Oxygen @ 2L/NC at NOC. 2 [place] for pain @ 2145. Bed alarm on. Call light within reach. Follow up:
--- NOTE | 2016-10-29 12:37 | NUR ---
Significant Event: Patient alert and oriented. Forgetful at times. Wears net sleeve and edema glove to right arm and hand due to lymphedema. Mepilex intact to back. Sutures under dressing. Wears oxygen at night. Taking [place] for pain. Home evaluation today. Patient will start on oral chemo medication either today or tomorrow. will need to write orders. Follow up:
--- NOTE | 2016-10-29 13:57 | NUR ---
D: OT home visit completed on Saturday October 29, 2016. I: Patient seen 1x, from 1230 to 1340 , for home visit assessment. Patient, Occupational therapist, Physical therapist, student and patient's son/caregiver were present. R: Patient completed the following tasks with the amount of assist listed. Also listed below are recommendations to increase safety and independence. BEDROOM: Functional mobility - MOD I utilizing cane Bed transfer - I, no AE required Closet/[place] Usage - MOD I utilizing cane Chair transfer - MOD I utilizing cane and armrest Doorway access - MOD I utilizing cane Bedside light access - I RECOMMENDATIONS: Recommend keeping walkways free of clutter, assist for items on top shelves, on floor, or heavy objects. BATHROOM: Functional mobility - MOD I utilizing cane Toilet transfer - MOD I utilizing cane Tub transfer - MOD I utilizing cane and standard shower chair, walk-in shower. Sink use - I-MOD I utilizing cane to ambulate to sink Cupboard access - MOD I utilizing counter and cane Doorway access - MOD I utilizing cane Medication Management - I RECOMMENDATIONS: Keep walkways free of clutter. KITCHEN: Functional mobility - MOD I utilizing cane Chair transfer - MOD I utilizing cane, chair with armrests Cupboard access -MOD I utilizing cane and counter Refrigerator access - MOD I utilizing cane Sink use - I-MOD I utilizing cane Stove use - MOD I utilizing cane and counter RECOMMENDATIONS: Keep walkways free from clutter, keep items frequently used within reach, assist for low or high objects and heavy objects. LIVING ROOM: Functional mobility - MOD I utilizing cane, did attempt use of 4WW, patient preferred cane Chair transfer - MOD I, recliner, utilizing cane and armrests TV operation - I RECOMMENDATIONS: Keep walkways free from clutter. HOME ENTRY: Functional mobility - MOD I utilizing cane and wall Door access - MOD I utilizing cane and doorway Stair negotiation - MOD I utilizing cane and wall RECOMMENDATIONS: Keep walkways free of clutter, add stable railing if needed. EMERGENCY SITUATIONS: Phone Use - Intact Exit Plan - Intact Knowledge of emergency Number - Intact Safety and Judgement - Intact Lifeline - N/A at this time. ADDITIONAL INFORMATION: Washer/Dryer use - Son will complete task. Endurance Level - Patient tolerated task well with seated rest breaks PRN. Patient's home is not wheelchair accessible, does not require wheelchair at this time. P: Patient does agree to complete the above listed recommendations and home modifications. Patient will require use of cane to access home on discharge. CEDRICK Danielle 10/29/2016
--- NOTE | 2016-10-30 04:49 | NUR ---
Significant Event:Mod I in room, does well with cane. Bed wasn't locked last evening and bed started to roll away from her but she was able to stand as staff securd bed from moving further. Net sleeve/glove to rt arm/hand due to edema. Mepeli drsg to back incision, drsg dry with upper portion of incision open to air with sutures intact. [place] 2 tabs given at 2200 for pain rated at 8 after taking alberta hose stocking off. O2 at 2 L for the night. 2-3+ edema to rt arm/hand and some to bilat feet. Started on oral chemo med--has discard yellow basket in br for waste. Miguel' office nurse is in charge of getting the meds covered and the frequency, pt has a calendar chart to follow his instrucitons. BM last evening, Po 420 ml, voids x2 Follow up:Have therapists help pt with placing alberta hose on more easily without hurting her back. Mod I in room. Pending discharge?
--- NOTE | 2016-10-30 13:21 | NUR ---
;Significant Event: Alert and orietned x 3. Up mod I in room with cane. Net sleeve and edema glove to right arm. Mepilex to back C/D/I. [place] at 1224. Oral Chemo daily. O2 on at night 2L. Last BM 10/29. Continent of bowel and bladder. Cooperative with cares. Follow up:
--- NOTE | 2016-10-30 14:21 | NUR ---
D: Crab Picker Team Conference Follow up for 10/28/16 I: Input from patient/family R: Met with: patient, friend Regla, Dr. Mooney, Lissette Dai [employer]PER[employer] Discussed rehab plan, patient progress, discharge plan and estimated length of stay of d/c planned in approx. 5-7 days. Team feels she may be ready for d/c on Thursday, but patient having a lot of anxiety about d/c. Patient/Family Preference: Patient plans to d/c next week on Thursday or Thursday when son will be around to help her. Anticipated discharge disposition: home with either home health care or outpatient therapy. Education completed: Education was completed with patient regarding length of stay, progress in therapy and d/c plan. Assessment/Recommendation: Team recommends that patient will be ready for d/c soon. P: Case Coordination: Lisa is a 71 year old woman from [place], [place] admitted after laminectomy. She has son who lives with her and has good support. Plan is to d/c to home next week. Will follow and assist with d/c planning.
--- NOTE | 2016-10-31 03:22 | NUR ---
Significant Event: Patient is alert and oriented, VSS. Up MOD I in room with cane. Wears a compression net sleeve and an edema glove to her right arm due to lymphedema. O2 on at 2 liters per NC at HS. Mepilex dressing to her midback. Took 1 Ultram and a Flexeril at bed time for pain. 2 [place] given at 0340. Has started oral chemo and is on hazardous med precautions. Follow up:
--- NOTE | 2016-10-31 10:41 | NUR ---
A-NUTRITION F/U NO NEW WT DIET RX: REGULAR W/ENSURE ENLIVE BID. PT HAS NOT TRIED THE ENSURE ENLIVE SHE IS WILLING TO TRY, BUT WOULD PREFER THE CHOCOLATE FLAVOR. PO INTAKE HAS BEEN 50-100% W/1 REFUSAL SINCE LAST F/U. PT REPORTS THAT SHE IS WORKING WITH NURSING ON REARRANGING SOME MEDICATION TIMES SHE HAS TO "TAKE A FIST FULL AT LUNCH TIME," AND THAT MAKES IT HARD FOR HER TO EAT LUNCH. D-AT NUTRITION RISK W/INDEQUATE ORAL INTAKE AT TIMES R/T DECREASED APPETITE, MEDICATIONS AEB PT REPORT, INTAKE RECORDS, WT LOSS. I-CHANGE ENSURE ENLIVE BID TO CHOCOLATE, PER PT REQUEST M/E-GOAL PO INTAKE >/=75% BY NEXT F/U 1)F/U PO INTAKE, SUPPLEMENT, WT, LABS, AND POC IN 4-5 DAYS 2)ASSIST NEEDED
--- NOTE | 2016-10-31 11:57 | NUR ---
D: TR progress note for 10/31/16. I: Pt seen for [address] [facility] for community integration skills building, functional transfers and safety awareness. R: Pt seen for functional skills building working on mobility, community skills and functional transfers in anticipation for discharge back into community. Pt taken around [facility] both indoors and outdoors to simulate community environment. Pt transferred sit > stand from WC mod I, ambulated community distances (500+) feet down hallways, around obstacles, and on [facility] campus indoors/outdoors with tripod cane SBA with no LOB. Pt independent with operating elevator buttons, automatic handicapped accessible doorways and SBA for opening doors to enter rooms. Pt completed community transfers on/off low park bench with no arm rest, community style chair with armrest and low, soft couch mod I. Education and demonstration done on energy conservation in community setting and standing rest breaks with pt having no questions or concerns. P: Will continue to see to address goals and plan of care.
--- NOTE | 2016-10-31 13:22 | NUR ---
Pt is alert and oriented to person, place and time. Incision to back is dry and intact, no redness, drainage or edema noted. Meplex intact. Pt c/o pain this shift and took both Ultram and Randolph for pain. Pt has participated in therapy. Up at bakari in room and ambulated out to dining area without difficulty. Pt voices no complaints other than pain this shift. Pt reports that the plan is to discharge her on Thursday.
--- NOTE | 2016-11-01 03:07 | NUR ---
Significant Event: Patient is alert and oriented, VSS. Up MOD I in room. Incision to her midback with Mepilex is C/D/I. C/O of pain to her back was given 2 Trufant at 2225 will want more before the shift ends. Net sleeve and edema glove to her right arm due to Lymphedemia. Went for Radiation yesterday and found her left breast red and warm. Area marked by RN yesterday. Pearl was here yesterday feels she has cellulitus was started on Cephalexin 500 mg BID. Patient is worried about the new findings and is concerned about possible discharge on Thursday. Follow up: Labs on Thursday with Zoledronic Acid infusion if GFR > 60 mls/m. Is on hazardous drug precautions is getting oral chemo.
[2016-11-01 06:48] LABS: EOSINOPHIL # 0.1 K/uL (0.0-0.5); EOSINOPHIL % 3.2 %; HEMATOCRIT 28.3 % (33.0-46.0); IMMATURE GRANULOCYTE % 0.4 %; LYMPHOCYTE # 0.5 K/uL (0.8-4.0); LYMPHOCYTE % 21.9 %; MCH 31.1 pg (27.0-34.0); MCHC 31.8 gm/dL (32.0-36.5); MCV 97.9 fl (83.0-98.0); MONOCYTE # 0.4 K/uL (0.0-1.0); MPV 8.4 fl (9.4-12.4); NEUTROPHIL # (ANC) 1.5 K/uL (1.8-7.8); NEUTROPHIL % 59.5 %; NRBC % 0 /100WBC (0-0.00); RBC 2.89 M/uL (3.50-5.50); RDW-CV 13.9 % (11.9-14.6); WBC 2.5 K/uL (4.0-11.0)
[2016-11-01 06:50] LABS: PLATELET COUNT 245 K/uL (150-450)
--- NOTE | 2016-11-01 16:42 | NUR ---
Significant Event: Pt up in room and arteaga Mod I, steady, with cane, bear. well. No c/o dizziness when up. C/O pain to shoulder and back, 2 norco x 2 last at 1407, tramadol at 1220. Dressing removed by Dr Greenwood, incision approx with sutures, open to air. Pt very pleasant and cooperative with cares. Pt voiced some nervousness about going home. Follow up: activity, pain management
--- NOTE | 2016-11-02 04:56 | NUR ---
Significant Event:norco 2 tabs last at 0023 for c/o pain to mid back. was going to shower but water never got warm enough so will try in am. up Jason. steady on feet. sutures to back intact, no drainage or redness noted. was talking about going home on thursday, is a bit nervous about going home. L0 breast red. taking keflex. slept for long intervals. Follow up:
[2016-11-02] MEDS ORDERED: KEFLEX500 MG PO (14:35)
[2016-11-02] MEDS ORDERED: FASLODEX IM ×2 (14:38→14:40)
[2016-11-02] MEDS ORDERED: IBRANCE125 MG PO (14:43)
[2016-11-02] MEDS ORDERED: TYLENOL325 MG PO (14:43)
[2016-11-02] MEDS ORDERED: NORCO 5-325 TA1 EACH PO (14:45)
--- NOTE | 2016-11-02 16:01 | NUR ---
Significant Event:PATIENT ALERT AND ORIENTED THIS SHIFT. VSS. TRANSFERS INDEPENDANTLY. COMPLAINTS OF BACK PAIN AND TAKES NORCO 2 TABS PO PRN. LAST DOSE GIVEN AT 1214. HAS BEEN TRYING TO STAY ABOUT 5 HOURS APART. TOLERATING FAIRLY WELL. WENT TO HER AA MEETING TODAY. INCISION WELL APPROXIMATED WITH SUTURES INTACT. LEFT BREAST REMAINS READ AND INFLAMMED. REPORTS IT IS LOOKING BETTER THOUGH. NO OTHER COMPLAINTS. Follow up:
--- NOTE | 2016-11-03 05:28 | NUR ---
Significant Event: NORCO 2 tabs given x3, last at 0450 for c/o pain to mid back. relief with med. up in room MOD I. had FIM shower on thursday, going home today. sutures to back intact without s/s of infection. left breast remains reddened. Follow up:
[2016-11-03 06:36] LABS: EOSINOPHIL # 0.1 K/uL (0.0-0.5); HEMATOCRIT 26.9 % (33.0-46.0); HEMOGLOBIN 8.5 g/dL (10.0-15.0); IMMATURE GRANULOCYTE % 0.3 %; LYMPHOCYTE # 0.4 K/uL (0.8-4.0); LYMPHOCYTE % 12.6 %; MCH 30.6 pg (27.0-34.0); MCHC 31.6 gm/dL (32.0-36.5); MCV 96.8 fl (83.0-98.0); MONOCYTE # 0.2 K/uL (0.0-1.0); MONOCYTE % 7.6 %; MPV 8.7 fl (9.4-12.4); NEUTROPHIL # (ANC) 2.3 K/uL (1.8-7.8); NEUTROPHIL % 77.5 %; NRBC % 0 /100WBC (0-0.00); PLATELET COUNT 230 K/uL (150-450); RBC 2.78 M/uL (3.50-5.50); RDW-CV 13.7 % (11.9-14.6)
[2016-11-03 06:53] LABS: ALBUMIN 2.4 gm/dL (3.5-5.0); ALK PHOS 114 IU/L (33-138); ALT 17 IU/L (12-78); ANION GAP 10.2 (10.0-19.0); AST 21 IU/L (10-40); BLOOD UREA NITROGEN 15 mg/dL (6-24); CALCIUM 8.7 mg/dL (8.5-10.5); CHLORIDE 106 mMol/L (96-110); CO2 26 mMol/L (22-32); CREATININE 0.9 mg/dL (0.5-1.1); ESTIMATED GFR (MDRD EQUATION) > 60; POTASSIUM 4.2 mMol/L (3.7-5.1); SODIUM 138 mMol/L (135-145); TOTAL BILIRUBIN 0.3 mg/dL (0.0-1.5); TOTAL PROTEIN 6.4 g/dL (6.0-8.4)
--- NOTE | 2016-11-03 12:49 | NUR ---
Significant Event:Pt MOd I, up and about room, and in hallway with good tolerance, steady on feet, uses cane. Pt dresses self, waited till her discharge then changed. Pt very active in plan of care, alert and orientated x 3, profession was RN. Pt takes PRN Oxford approx. 5 hours apart for back pain, last dose approx. 1045. Continent of bowel and bladder. Dr Solano here, reviewed discharge orders, updated, and visited with pt. Dr Mooney here for rounds. Pt Discharge summary completed, and reviewed with pt, medications, follow up apts. Due to [facility] Thursday hol, pt has to set up own apt, she is aware. Dr Greenwood called and wanted to removed suture, reported he would be up. Pt ready to go, paper work done, Dr Greenwood note here by 1100. Updated Dr pt ready to go and wanted to get prescription for pain med to [facility] before [address] Greenwood here approx. 1210. Removed back incision suture, dry and intact, no drainage noted @ this time. Pt changed clothes, loaded possession on cart, pt taken to [address] by Olena GONSALES, approx. 1248 pt discharged to son to go home. Had offered that pt son could come and get the prescriptions and take to pharmacy for her, she decided not to do that. She thought she had no Oxford @ home, but she knee she had Ultram. Pt made own decision on medication refills, and reported she did not want to go to [facility] as [facility]rence suggested when she called them and if she was after hours. Pt Also offered noon meal, she took a few items off the tray, and left the rest since she planed to go. Son did wait down @ [address] trying to save time for pt to go to pharmacy if she so desired. Pt has been pleasant and cooperative with plan of care, discharged this date @ 1248 to care of son Haja. Follow up:Discharge summary done, pain meds given for discharge.
--- NOTE | 2016-11-09 12:04 | NUR ---
D: Patient Intake Coordinator Discharge Note for 11/03/16 I: Input from Patient/Family R: Patient to discharge On: 11/03/16 With: son Disposition: home with outpatient therapy. Resource Discussed: discussed [facility] vs outpatient therapy. Patient prefers outpatient. Therapy Recommendation: see therapy notes Equipment Recommendations: see therapy notes Financial Resources Used: patient has Medicare and supplement. Other referrals: none. Patient/Family education completed: prior to d/c. Patient/Family preference: in agreement. Plan of Care and Goal summary: met all CM goals. P: Complete follow up within one week: call patient next week to see how she is doing post discharge.
== END 2016-11-03 12:48 | disposition disaster alternative care site (69) | DRG 947 ==
LOC: GIRP 10:00
PROVIDERS: Family Medicine; Internal Medicine Hematology & Oncology; ADMIT Physical Medicine & Rehabilitation
DX: R53.1 Weakness (principal); E43 Unspecified severe protein-calorie malnutrition; C79.51 Secondary malignant neoplasm of bone; D69.6 Thrombocytopenia, unspecified; I08.1 Rheumatic disorders of both mitral and tricuspid valves; M84.58XA Pathological fracture in neoplastic disease, other specified site, initial encounter for fracture; R63.0 Anorexia; D63.0 Anemia in neoplastic disease; Z98.1 Arthrodesis status; R26.81 Unsteadiness on feet; K21.9 Gastro-esophageal reflux disease without esophagitis; M81.0 Age-related osteoporosis without current pathological fracture; Z90.49 Acquired absence of other specified parts of digestive tract; Z85.3 Personal history of malignant neoplasm of breast; Z88.5 Allergy status to narcotic agent; G47.33 Obstructive sleep apnea (adult) (pediatric); Z51.89 Encounter for other specified aftercare; E03.9 Hypothyroidism, unspecified; I89.0 Lymphedema, not elsewhere classified; D64.9 Anemia, unspecified; G89.4 Chronic pain syndrome
CPT/HCPCS: J9395

== ENCOUNTER 2016-11-25 17:18 | Emergency (ER) | payer MEDICARE, OTHER ==
--- NOTE | ~2016-11-25 | ER ---
PATIENT'S NAME: EMELIA GILLIAM [facility] AGE: 71 Y [address] ROOM: [place] [address] LOCATION: ED ADMIT DATE: 11/25/2016 ER/Outpatient Report DISCHARGE DATE: 11/25/2016 FAMILY PHYSICIAN: Andrei Land MD ATTENDING PHYSICIAN: Luz Iraheta Time of Arrival: 1730 hours. Time of Exam: 1730 hours. CHIEF COMPLAINT: Low blood pressure. HISTORY OF PRESENT ILLNESS: The patient was at Dr. Garcia's office today. Her blood pressure dropped today. They did give her fluids and she was running a fever, so they encouraged her to come here for further evaluation. The patient states that she has been running fevers low-grade but anywhere around 100 for the past 2 weeks. She denies being short of breath. Has not had a cough. Has not had any nausea or vomiting. Does have back pain. Has a long history of back problems. Last chemo was 3 weeks ago. She states she got 750 mL of fluid in the office today before coming to the ER. She denies any change in her bowel or bladder pattern. ALLERGIES: VALIUM AND CODEINE. CURRENT MEDICATIONS: On the chart and reviewed by me. PAST MEDICAL HISTORY: Breast cancer with metastasis to the bone, has had compression fracture T4-T5, hypothyroidism, nocturnal hypoxia, and GERD. PAST SURGERIES: Laminectomy and decompression of T2 through T7 in September 2016 the patient states, right simple mastectomy in 2000, appendectomy, and left axillary mass removal in 2013. SOCIAL HISTORY: Quit smoking in 2004. Denies use of drugs and alcohol. REVIEW OF SYSTEMS: All negative other than those mentioned in the HPI. PHYSICAL EXAMINATION: PATIENT'S NAME: EMELIA GILLIAM [facility] AGE: 71 Y [address] ROOM: [place] [address] LOCATION: ED ADMIT DATE: 11/25/2016 ER/Outpatient Report DISCHARGE DATE: 11/25/2016 FAMILY PHYSICIAN: Andrei Land MD ATTENDING PHYSICIAN: Luz Iraheta VITAL SIGNS: She weighed 67.5 kg. Blood pressure was 143/60, pulse of 108, respirations 16, temperature of 100 tympanic, and O2 saturation was 95% on room air. GENERAL: She is awake, alert, and oriented x4. SKIN: Roper, warm, and dry. RESPIRATIONS: Even and nonlabored. Lung sounds are clear throughout. HEART: Regular rate and rhythm. ABDOMEN: Soft and nondistended. Bowel sounds are present. LABORATORY DATA AND X-RAYS: Lab work was completed. White count is 2.2, hemoglobin is 8.2, her ANC is 1.5, and platelet count is 153. Chem panel is within normal limits. Procalcitonin is less than 0.05. Lactate is 1.1. The patient was monitored. She denies having any pain or discomfort. Vital signs remained stable. IMPRESSION: Fever. PLAN: Home, rest, fluids. Continue her current medications. Follow up with her primary provider in the next 1-2 days. She verbalized understanding. JULIAN ALVARADO APRN FOR MD KISHORE AYALA/roslyn /[id number] d: 11/26/16 0107 t: 11/28/16 1228, OUTPATIENT REPORT
[~2016-11-25 17:18] MED LIST changes: +FASLODEX IM; +IBRANCE125 MG PO; +KEFLEX500 MG PO; +NORCO 5-325 TA1 EACH PO; +TYLENOL325 MG PO
[2016-11-25 17:59] LABS: HEMATOCRIT 24.7 % (33.0-46.0); HEMOGLOBIN 8.2 g/dL (10.0-15.0); MCH 31.9 pg (27.0-34.0); MCHC 33.2 gm/dL (32.0-36.5); MCV 96.1 fl (83.0-98.0); MPV 9.3 fl (9.4-12.4); RBC 2.57 M/uL (3.50-5.50); WBC 2.2 K/uL (4.0-11.0)
[2016-11-25 18:00] LABS: PLATELET COUNT 153 K/uL (150-450); RDW-CV 16.4 % (11.9-14.6)
[2016-11-25 18:17] LABS: ALBUMIN 2.7 gm/dL (3.5-5.0); ALK PHOS 84 IU/L (33-138); ALT 20 IU/L (12-78); ANION GAP 10.2 (10.0-19.0); AST 27 IU/L (10-40); BLOOD UREA NITROGEN 10 mg/dL (6-24); CALCIUM 8.3 mg/dL (8.5-10.5); CHLORIDE 99 mMol/L (96-110); CO2 28 mMol/L (22-32); CREATININE 0.6 mg/dL (0.5-1.1); ESTIMATED GFR (MDRD EQUATION) > 60; POTASSIUM 4.2 mMol/L (3.7-5.1); SODIUM 133 mMol/L (135-145); TOTAL PROTEIN 6.2 g/dL (6.0-8.4)
[2016-11-25 18:21] LABS: TOTAL BILIRUBIN 0.2 mg/dL (0.0-1.5)
[2016-11-25 18:58] LABS: ABSOLUTE NEUTROPHIL CT (ANC) 1.5 K/uL (1.8-7.8); BANDED NEUTROPHIL # 0.4 K/uL (0.0-0.1); BANDED NEUTROPHILS % 19 %; LYMPHOCYTE # 0.3 K/uL (0.8-4.0); LYMPHOCYTE % 14 %; MONOCYTE # 0.3 K/uL (0.0-1.0); SEGMENTED NEUTROPHIL # 1.1 K/uL (1.8-7.8); SEGMENTED NEUTROPHIL % 51 %
== END 2016-11-25 19:09 | disposition disaster alternative care site (69) ==
LOC: GMED 17:18
PROVIDERS: Nurse Practitioner Family
DX: R50.9 Fever, unspecified (principal); E03.9 Hypothyroidism, unspecified; R09.02 Hypoxemia; Z87.19 Personal history of other diseases of the digestive system; Z88.8 Allergy status to other drugs, medicaments and biological substances; Z88.5 Allergy status to narcotic agent; Z85.3 Personal history of malignant neoplasm of breast; Z90.49 Acquired absence of other specified parts of digestive tract; Z90.89 Acquired absence of other organs; Z90.11 Acquired absence of right breast and nipple; Z98.890 Other specified postprocedural states; Z79.891 Long term (current) use of opiate analgesic; Z79.899 Other long term (current) drug therapy

== ENCOUNTER → 2016-11-27 | Outpatient (CLI) | payer MEDICARE, OTHER | END | disposition disaster alternative care site (69) | LOC: GRAD 14:30 | DX: T82.868A Thrombosis due to vascular prosthetic devices, implants and grafts, initial encounter (principal) ==

== ENCOUNTER → 2016-12-16 | Outpatient (CLI) | payer MEDICARE, OTHER ==
--- NOTE | ~2016-12-16 | ECHO ---
Transthoracic Echocardiography Report (TTE) Demographics Patient Name EMELIA GILLIAM Date of Study 12/16/2016 Patient Number [id number] Visit Number [id number] Date of 1945 Room Number Gender Female Number Age 71 year(s) Referring Emery Forbes MD Color Receiver John Mendez RD, Physician Ermias Espinoza RVT PA-C Physician Interpreting Khari Bowers Ict Educator Physician Roma TELLEZ Supervising Ordering Ermias Espinoza MD/MLP Physician PA-C Nurse Stress Candy Attendant Conclusions Contractility Score Summary Mildly decreased Left Ventricular contractility was noted. Summary Technically difficult exam due to patient pain tolerance. The estimated left ventricular ejection fraction is 45-50%. Mild concentric left ventricular hypertrophy. Diastolic assessment reveals Grade I diastolic dysfunction. The ascending aorta appears mildly dilated. The maximum diameter measures 3.3 cm. The aortic root appears mildly dilated. The maximum diameter measures 3.6 cm. The right atrium is mildly dilated. Prominent Eustachian valve vs R atrial mass Cardiac MR is suggested Procedure Type of Study TTE procedure:2D Echocardiogram. Procedure Date Date: 12/16/2016 Start: 02:26 PM Study Location: Echo Lab Technical Quality: Fair due to body habitus. Indications:High Risk Medication Use. Appropriate Use Criteria: 9 Patient Status: Routine HR: 92 bpm BP: 112/61 mmHg M-Mode/2D Measurements LV Diastolic Dimension: 3.8 cm LV Systolic Dimension: 2.62 cm LV Septum Diastolic: 1.21 cm LV PW Diastolic: 0.93 cm AO Root Dimension: 3.6 cm Cardiac Output: 4.97 l/min LVOT: 2 cm LVOT VTI: 17.2 cm RV Base: 3.29 cm LV Stroke volume: 54.01 ml TAPSE: 2.54 cm TDI-S': 12.7 cm/s Doppler Measurements AV Peak Velocity: 0.89 m/s MV Peak E-Wave: 0.47 m/s AV Peak Gradient: 3.14 mmHg MV Peak A-Wave: 0.71 m/s AV Mean Gradient: 2 mmHg MV E/A Ratio: 0.65 LVOT Peak Velocity: 0.82 m/s MV P1/2t: 79 msec TR Gradient:23.81 mmHg PV Peak Velocity: 0.72 m/s Estimated RAP:5 mmHg PV Peak Gradient: 2.09 mmHg Estimated RVSP: 29 mmHg Estimated PASP: 28.81 mmHg E' Septal Velocity: 0.04 m/s A' Septal Velocity: 0.1 m/s E' Lateral Velocity: 0.06 m/s A' Lateral Velocity: 0.12 m/s Findings Left Ventricle Mild concentric left ventricular hypertrophy. Diastolic assessment reveals Grade I diastolic dysfunction. Right Ventricle Normal right ventricle structure and function. Left Atrium Normal left atrial size. Right Atrium The right atrium is mildly dilated. Prominent Eustachian valve vs R atrial mass Mitral Valve Normal mitral valve structure and function. Aortic Valve Normal aortic valve structure and function. Tricuspid Valve Trivial tricuspid regurgitation by color Doppler. Pulmonic Valve Normal pulmonic valve structure and function. Pericardial Effusion No evidence of pericardial effusion. Miscellaneous The ascending aorta appears mildly dilated. The maximum diameter measures 3.3 cm. The aortic root appears mildly dilated. The maximum diameter measures 3.9 cm. Pleural Effusion No evidence of pleural effusion. Signature dtt: Aiden Lucia dtd: 12/16/16 1426 Physician Self Edit
== END | disposition disaster alternative care site (69) ==
LOC: GCAR 14:00
DX: R00.0 Tachycardia, unspecified (principal); C50.412 Malignant neoplasm of upper-outer quadrant of left female breast; M81.0 Age-related osteoporosis without current pathological fracture; M54.6 Pain in thoracic spine; G95.29 Other cord compression; C79.51 Secondary malignant neoplasm of bone; L03.319 Cellulitis of trunk, unspecified; I51.7 Cardiomegaly; I51.89 Other ill-defined heart diseases; I25.3 Aneurysm of heart; Z79.811 Long term (current) use of aromatase inhibitors

== ENCOUNTER → 2017-01-15 | Outpatient (CLI) | payer MEDICARE, OTHER | END | disposition disaster alternative care site (69) | LOC: GRAD 12:51 | DX: R13.10 Dysphagia, unspecified (principal); T17.300A Unspecified foreign body in larynx causing asphyxiation, initial encounter | CPT/HCPCS: G8996; G8997; G8998 ==

== ENCOUNTER → 2017-02-02 | Outpatient (CLI) | payer MEDICARE, OTHER ==
--- NOTE | ~2017-02-02 | OR ---
PATIENT'S NAME: EMELIA GILLIAM [facility] AGE: 71 Y [address] ROOM: [place] [address] LOCATION: [facility] ADMIT DATE: 02/02/2017 OR/Procedure Report DISCHARGE DATE: FAMILY PHYSICIAN: COLTEN LUA MD ATTENDING PHYSICIAN: Itzel Iniguez SURGEON: Li Martin MD FORDER OPERATOR: DATE OF PROCEDURE: 02/02/2017 PROCEDURE: Cardiac MRI INDICATION: Rule out right atrial mass. PROCEDURE IN DETAIL: The patient was prepared in the MRI scanner in the normal fashion. Scanning was performed on a Siemens Skyra 3T MRI System. The patient underwent cardiac MRI for morphology and function as well as contrast imaging including perfusion imaging to assess for mass. The patient received 20 mL ProHance contrast. FINDINGS: 1. Left ventricle is of normal size. LVEF 56%. End-diastolic volume 68 mL and systolic volume 29 mL. Stroke volume 39 mL. 2. Right ventricle is of normal shape and function. 3. Atrial size appeared normal. 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 Right atrium shows a prominent eustachian valve. No evidence of mass. No thrombus seen. 4. Valvular morphology is within normal. There are mild tricuspid regurgitation and trivial aortic regurgitation. 5. Aortic root is mildly dilated and sinus Valsalva 39 mm, STJ 33 mm, ascending aorta diameter 39 mm. 6. Contrast administration and perfusion scanning shows no evidence of abnormalities. 7. No evidence of pericardial effusion. SUMMARY: 1. Prominent eustachian valve, no evidence of mass. 2. Mild dilatation of the aortic root and ascending aorta. 3. Normal Left ventricular systolic function. LI MARTIN MD PATIENT'S NAME: EMELIA GILLIAM [facility] AGE: 71 Y [address] ROOM: [place] [address] LOCATION: [facility] ADMIT DATE: 02/02/2017 OR/Procedure Report DISCHARGE DATE: FAMILY PHYSICIAN: COLTEN LUA MD ATTENDING PHYSICIAN: Itzel Iniguez ON/modl /[id number] d: 02/10/17 2145 t: 02/15/17 1855, OPERATIVE SUMMARY
== END | disposition disaster alternative care site (69) ==
LOC: GRAD 09:46
DX: C50.412 Malignant neoplasm of upper-outer quadrant of left female breast (principal); M81.0 Age-related osteoporosis without current pathological fracture; M54.6 Pain in thoracic spine; G95.29 Other cord compression; C79.51 Secondary malignant neoplasm of bone; L03.319 Cellulitis of trunk, unspecified; R93.1 Abnormal findings on diagnostic imaging of heart and coronary circulation; Z79.811 Long term (current) use of aromatase inhibitors
CPT/HCPCS: A9503; A9577; Q9967